=== PATIENT | female | born 1955 | race Caucasian/White ===

== ENCOUNTER 2020-11-24 14:53 | Outpatient (REF) | payer MEDICARE, SELFPAY ==
--- NOTE | 2020-11-24 | MM_ITS ---
EXAMINATION: MM SCREENING DIGITAL BREAST TOMOSYNTHESIS, BILATERAL CLINICAL INFORMATION: Screening. Asymptomatic. Additional history provided of prior breast reduction mammoplasty and surgery for benign fibroadenoma. The lifetime risk of breast cancer based on the Tyrer-Cuzick Model is 7%. COMPARISON: Mammography: 11/10/2019, 11/04/2018, 10/04/2017 TECHNIQUE: Digital breast tomosynthesis is performed in both the craniocaudal and mediolateral oblique views along with computer-aided detection (CAD). Synthesized 2D images are generated from the tomosynthesis. FINDINGS: There are scattered areas of fibroglandular density (ACR BI-RADS breast composition Category b). There are no significant masses, abnormal calcifications, or other abnormalities. Parenchymal pattern is similar to prior exam. There is a stable smooth circumscribed nodule periareolar right breast. There are scattered benign calcifications in both breasts. The axilla and skin contours are unremarkable. MM/MM tomosynthesis screening BI IMPRESSION: No significant changes from prior exams. ASSESSMENT: BI-RADS 2: Benign RECOMMENDATION: Routine annual mammography screening. This patient's information was entered into a reminder system with a target due date for their next mammogram.
== END 2020-11-24 14:54 | disposition home or self-care (01) ==
LOC: HO.MAMMO 14:53
PROVIDERS: Visit Provider Internal Medicine
DX: Z12.31 Encounter for screening mammogram for malignant neoplasm of breast (principal)
CPT/HCPCS: 77063; 77067

== ENCOUNTER → 2020-12-16 09:56 | Outpatient (BNVA) | payer MEDICARE, SELFPAY | PROVIDERS: PCP Internal Medicine; Visit Provider Orthopaedic Surgery | DX: Z47.1 Aftercare following joint replacement surgery (principal); Z96.651 Presence of right artificial knee joint | CPT/HCPCS: 99212 ==

== ENCOUNTER 2020-12-29 09:31 | Outpatient (REF) | payer MEDICARE, SELFPAY ==
--- NOTE | 2020-12-29 10:14 | XR_ITS ---
EXAMINATION: XR KNEE, BILATERAL XR KNEE, RIGHT CLINICAL INFORMATION: Knee pain COMPARISON: 12/07/2019 TECHNIQUE: AP standing view of both knees. Lateral and sunrise views of the right knee. FINDINGS: Right knee: There is a total right knee arthroplasty revision with longstem tibial and femoral components. Hardware is appropriately aligned. Unchanged alignment at the patellofemoral compartment, with slight offset from midline. No periprosthetic lucency or fracture. No joint effusion. Left knee: No fracture or subluxation. Medial and lateral compartments are appropriately aligned. XR/XR knee RT 2V IMPRESSION: Total right knee arthroplasty revision without evidence of failure. Persistent offset from midline at the patellofemoral compartment articulation
--- NOTE | 2020-12-29 10:14 | XR_ITS ---
EXAMINATION: XR KNEE, BILATERAL XR KNEE, RIGHT CLINICAL INFORMATION: Knee pain COMPARISON: 12/07/2019 TECHNIQUE: AP standing view of both knees. Lateral and sunrise views of the right knee. FINDINGS: Right knee: There is a total right knee arthroplasty revision with longstem tibial and femoral components. Hardware is appropriately aligned. Unchanged alignment at the patellofemoral compartment, with slight offset from midline. No periprosthetic lucency or fracture. No joint effusion. Left knee: No fracture or subluxation. Medial and lateral compartments are appropriately aligned. XR/XR knee standing BI IMPRESSION: Total right knee arthroplasty revision without evidence of failure. Persistent offset from midline at the patellofemoral compartment articulation
== END 2020-12-29 09:32 | disposition home or self-care (01) ==
LOC: HO.HOSX 09:31
PROVIDERS: Visit Provider Orthopaedic Surgery
DX: Z47.1 Aftercare following joint replacement surgery (principal); Z96.651 Presence of right artificial knee joint
CPT/HCPCS: 73560; 73565; 99212

== ENCOUNTER 2021-03-03 08:01 | Outpatient (REF) | payer MEDICARE, SELFPAY ==
[2021-03-03 11:50] LABS: Alanine Aminotransferase 18 U/L (0-31); Anion Gap 13 (12-20); Aspartate Amino Transferase 29 U/L (5-31); Blood Urea Nitrogen 18 mg/dL (9-16); Calcium 9.5 mg/dL (8.4-10.2); Carbon Dioxide 28 mmol/L (22-29); Chloride 104 mmol/L (96-108); Cholesterol 221 mg/dL; Estimated Glomerular Filt Rate > 60; Glucose Fasting 128 mg/dL (60-99); HDL Cholesterol 40 mg/dL; LDL Cholesterol Calculated 142 mg/dl; Potassium 4.2 mmol/L (3.3-5.1); Sodium 141 mmol/L (135-145); Triglycerides 195 mg/dL
[2021-03-03 11:59] LABS: Estimated Average Glucose 134 mg/dL; Hemoglobin A1c % 6.3 %
[2021-03-03 12:16] LABS: Vitamin D 25-OH Total 46.2 ng/mL (>30)
== END 2021-03-03 08:02 | disposition home or self-care (01) ==
LOC: HO.HMGCLDS 08:01
PROVIDERS: Visit Provider Internal Medicine
DX: Z00.01 Encounter for general adult medical examination with abnormal findings (principal); E78.5 Hyperlipidemia, unspecified; I10 Essential (primary) hypertension; Z78.0 Asymptomatic menopausal state
CPT/HCPCS: 36415; 80048; 80061; 82306; 83036; 84450; 84460

== ENCOUNTER 2021-05-12 12:59 | Outpatient (REF) | payer MEDICARE, SELFPAY ==
[2021-05-12 14:31] LABS: C Reactive Protein 1.41 mg/dL (< or = 0.50)
[2021-05-12 14:43] LABS: Erythrocyte Sedimentation Rate 13 MM/HR (0-20)
== END 2021-05-12 13:00 | disposition home or self-care (01) ==
LOC: HO.HMGCLDS 12:59
PROVIDERS: PCP Internal Medicine; Visit Provider Student in an Organized Health Care Education/Training Program
DX: M25.561 Pain in right knee (principal)
CPT/HCPCS: 36415; 85652; 86140

== ENCOUNTER 2021-07-07 07:29 | Outpatient (REF) | payer MEDICARE, SELFPAY ==
[2021-07-07 11:50] LABS: Estimated Average Glucose 148 mg/dL; Hemoglobin A1c % 6.8 %
[2021-07-07 12:14] LABS: Alanine Aminotransferase 16 U/L (0-31); Aspartate Amino Transferase 24 U/L (5-31); Cholesterol 156 mg/dL; HDL Cholesterol 33 mg/dL; LDL Cholesterol Calculated 80 mg/dl; Triglycerides 219 mg/dL
[2021-07-07 12:16] LABS: Vitamin D 25-OH Total 49.4 ng/mL (>30)
== END 2021-07-07 07:30 | disposition home or self-care (01) ==
LOC: HO.HMGCLDS 07:29
PROVIDERS: PCP Internal Medicine; Visit Provider Internal Medicine
DX: E78.5 Hyperlipidemia, unspecified (principal); R73.01 Impaired fasting glucose
CPT/HCPCS: 36415; 80061; 82306; 83036; 84450; 84460

== ENCOUNTER 2021-12-04 14:49 | Outpatient (REF) | payer MEDICARE, SELFPAY ==
--- NOTE | ~2021-12-04 | MM_ITS ---
EXAMINATION: MM SCREENING DIGITAL BREAST TOMOSYNTHESIS, BILATERAL CLINICAL INFORMATION: Screening. Asymptomatic. The lifetime risk of breast cancer based on the Tyrer-Cuzick Model is 5%. COMPARISON: Mammography: 11/24/2020, 11/10/2019, 11/04/2018 TECHNIQUE: Digital breast tomosynthesis is performed in both the craniocaudal and mediolateral oblique views along with computer-aided detection (CAD). Synthesized 2D images are generated from the tomosynthesis. FINDINGS: There are scattered areas of fibroglandular density (ACR BI-RADS breast composition Category b). There are no significant masses, abnormal calcifications, or other abnormalities. There is a stable circumscribed nodule right periareolar upper outer breast. Scattered bilateral round and dermal calcifications are again demonstrated. The axilla and skin contours are unremarkable. MM/MM tomosynthesis screening BI IMPRESSION: No mammographic evidence of malignancy. ASSESSMENT: BI-RADS 2: Benign RECOMMENDATION: Routine annual mammography screening. This patient's information was entered into a reminder system with a target due date for their next mammogram.
== END 2021-12-04 14:50 | disposition home or self-care (01) ==
LOC: HO.MAMMO 14:49
PROVIDERS: PCP Internal Medicine; Visit Provider Internal Medicine
DX: Z12.31 Encounter for screening mammogram for malignant neoplasm of breast (principal)
CPT/HCPCS: 77063; 77067

== ENCOUNTER 2021-12-07 09:09 | Outpatient (REF) | payer MEDICARE, SELFPAY ==
[2021-12-07 10:37] LABS: COVID-19 Test Positive (Negative)
== END 2021-12-07 09:10 | disposition home or self-care (01) ==
LOC: HO.LAB 09:09
PROVIDERS: Visit Provider Internal Medicine
DX: Z20.822 Contact with and (suspected) exposure to COVID-19 (principal)
CPT/HCPCS: 87635; C9803

== ENCOUNTER 2022-01-01 07:23 | Outpatient (REF) | payer MEDICARE, SELFPAY ==
[2022-01-01 11:46] LABS: Alanine Aminotransferase 15 U/L (0-31); Anion Gap 10 (12-20); Aspartate Amino Transferase 25 U/L (5-31); Blood Urea Nitrogen 16 mg/dL (9-16); Calcium 9.7 mg/dL (8.4-10.2); Carbon Dioxide 29 mmol/L (22-29); Chloride 105 mmol/L (96-108); Cholesterol 162 mg/dL; Estimated Glomerular Filt Rate > 60; Glucose Fasting 174 mg/dL (60-99); HDL Cholesterol 30 mg/dL; LDL Cholesterol Calculated 90 mg/dl; Potassium 4.4 mmol/L (3.3-5.1); Sodium 140 mmol/L (135-145); Triglycerides 211 mg/dL
[2022-01-01 11:53] LABS: Vitamin D 25-OH Total 53.6 ng/mL (>30)
[2022-01-01 12:05] LABS: Estimated Average Glucose 166 mg/dL; Hemoglobin A1c % 7.4 %
== END 2022-01-01 07:24 | disposition home or self-care (01) ==
LOC: HO.HMGCLDS 07:23
PROVIDERS: Visit Provider Internal Medicine
DX: E11.9 Type 2 diabetes mellitus without complications (principal); E78.5 Hyperlipidemia, unspecified; I10 Essential (primary) hypertension; Z78.0 Asymptomatic menopausal state
CPT/HCPCS: 36415; 80048; 80061; 82306; 83036; 84450; 84460

== ENCOUNTER 2022-02-06 08:40 | Outpatient (REF) | payer MEDICARE, SELFPAY ==
[2022-02-06 11:51] LABS: Appearance Urine CLOUDY; Color Urine YELLOW; Glucose Urine UA NEG (NEG); Leukocyte Esterase Urine 3+ (NEG); Nitrite Urine NEG (NEG); PH 5.5 (5.0-8.0); Specific Gravity - Urine >= 1.030 (1.005-1.025); UACC Culture Trigger YES; Urine Blood 2+ (NEG); Urine Ketones NEG (NEG); Urine Protein 1+ MG/DL (NEG-TRACE)
[2022-02-06 12:22] LABS: WBC Urine TNTC /HPF (0-4)
[2022-02-06 12:23] LABS: Bacteria Urine 2+ /LPF; Squamous Epithelial Cell Urine 2+ /LPF
== END 2022-02-06 08:41 | disposition home or self-care (01) ==
LOC: HO.HMGCLDS 08:40
PROVIDERS: PCP Internal Medicine; Visit Provider Internal Medicine
DX: N39.46 Mixed incontinence (principal)
CPT/HCPCS: 81001; 87086

== ENCOUNTER 2022-03-29 07:17 | Outpatient (REF) | payer MEDICARE, SELFPAY ==
[2022-03-29 11:19] LABS: Appearance Urine HAZY; Color Urine YELLOW; Glucose Urine UA NEG (NEG); Leukocyte Esterase Urine NEG (NEG); Nitrite Urine NEG (NEG); Specific Gravity - Urine 1.025 (1.005-1.025); UACC Culture Trigger NO; Urine Blood 1+ (NEG); Urine Ketones NEG (NEG); Urine Protein NEG (NEG-TRACE)
[2022-03-29 11:32] LABS: Alanine Aminotransferase 12 U/L (0-31); Anion Gap 14 (12-20); Aspartate Amino Transferase 23 U/L (5-31); Blood Urea Nitrogen 20 mg/dL (9-16); Calcium 9.6 mg/dL (8.4-10.2); Carbon Dioxide 25 mmol/L (22-29); Chloride 105 mmol/L (96-108); Cholesterol 161 mg/dL; Estimated Glomerular Filt Rate > 60; Glucose Fasting 128 mg/dL (60-99); HDL Cholesterol 36 mg/dL; LDL Cholesterol Calculated 85 mg/dl; Potassium 4.2 mmol/L (3.3-5.1); Sodium 140 mmol/L (135-145); Triglycerides 203 mg/dL
[2022-03-29 11:47] LABS: Estimated Average Glucose 146 mg/dL; Hemoglobin A1c % 6.7 %
[2022-03-29 11:55] LABS: Vitamin D 25-OH Total 49.5 ng/mL (>30)
[2022-03-29 12:06] LABS: Amorphous Sediment Urine 3+ /LPF; Squamous Epithelial Cell Urine 2+ /LPF
[2022-03-29 12:07] LABS: RBC Urine 0 /HPF (0); WBC Urine 0-2 /HPF (0-4)
== END 2022-03-29 07:18 | disposition home or self-care (01) ==
LOC: HO.HMGCLDS 07:17
PROVIDERS: Visit Provider Internal Medicine
DX: E11.65 Type 2 diabetes mellitus with hyperglycemia (principal); N39.46 Mixed incontinence; E78.5 Hyperlipidemia, unspecified; N95.9 Unspecified menopausal and perimenopausal disorder
CPT/HCPCS: 36415; 80048; 80061; 81001; 82306; 83036; 84450; 84460

== ENCOUNTER 2022-04-02 13:03 | Outpatient (REF) | payer MEDICARE, SELFPAY ==
--- NOTE | ~2022-04-02 | XR_ITS ---
EXAMINATION: XR LUMBOSACRAL SPINE WITH OBLIQUES CLINICAL INFORMATION: Low back pain COMPARISON: None TECHNIQUE: Lumbar spine is imaged in 5 views. FINDINGS: There are hypoplastic 12th ribs with 5 nonrib-bearing lumbar vertebrae of normal height and normal lumbar lordosis. There is mild levocurvature lower thoracic spine. No lumbar vertebral compression or destructive process. There are multilevel degenerative disc changes, greater at L1-L2 through L3-L4. There is borderline retrolisthesis at L3-L4 and L4-L5. Oblique view show no spondylolysis. The SI joints and visualized sacrum are unremarkable. Right hip prosthesis present. XR/XR lumbar spine 4V min IMPRESSION: -Mild levocurvature lower lumbar spine. Normal lumbar lordosis. -No vertebral compression or destructive process. -Multilevel degenerative disc changes. -Borderline retrolisthesis L3-L4 and L4-L5. No spondylolysis.
== END 2022-04-02 13:04 | disposition home or self-care (01) ==
LOC: HO.HMGCX 13:03
PROVIDERS: PCP Internal Medicine; Visit Provider Internal Medicine
DX: M54.50 Low back pain, unspecified (principal)
CPT/HCPCS: 72110

== ENCOUNTER 2022-07-16 07:10 | Outpatient (REF) | payer MEDICARE, SELFPAY ==
[2022-07-16 11:40] LABS: Estimated Average Glucose 128 mg/dL; Hemoglobin A1c % 6.1 %
[2022-07-16 12:10] LABS: Vitamin D 25-OH Total 43.5 ng/mL (>30)
[2022-07-16 12:11] LABS: Alanine Aminotransferase 10 U/L (0-31); Anion Gap 15 (12-20); Aspartate Amino Transferase 19 U/L (5-31); Blood Urea Nitrogen 20 mg/dL (9-16); Calcium 9.6 mg/dL (8.4-10.2); Carbon Dioxide 25 mmol/L (22-29); Chloride 105 mmol/L (96-108); Cholesterol 177 mg/dL; Estimated Glomerular Filt Rate > 60; Glucose Fasting 131 mg/dL (60-99); HDL Cholesterol 40 mg/dL; LDL Cholesterol Calculated 98 mg/dl; Potassium 4.2 mmol/L (3.3-5.1); Sodium 141 mmol/L (135-145); Triglycerides 199 mg/dL
== END 2022-07-16 07:11 | disposition home or self-care (01) ==
LOC: HO.HMGCLDS 07:10
PROVIDERS: PCP Internal Medicine; Visit Provider Internal Medicine
DX: E11.65 Type 2 diabetes mellitus with hyperglycemia (principal); E78.5 Hyperlipidemia, unspecified; Z78.0 Asymptomatic menopausal state
CPT/HCPCS: 36415; 80048; 80061; 82306; 83036; 84450; 84460

== ENCOUNTER 2022-12-06 13:52 | Outpatient (REF) | payer MEDICARE, SELFPAY ==
--- NOTE | ~2022-12-06 | MM_ITS ---
EXAMINATION: MM SCREENING DIGITAL BREAST TOMOSYNTHESIS, BILATERAL CLINICAL INFORMATION: Screening. Asymptomatic. The lifetime risk of breast cancer based on the Tyrer-Cuzick Model is 4.5%. COMPARISON: Mammography: December 04, 2021 and studies dating back to October 04, 2017 TECHNIQUE: Digital breast tomosynthesis is performed in both the craniocaudal and mediolateral oblique views along with computer-aided detection (CAD). Synthesized 2D images are generated from the tomosynthesis. FINDINGS: The breasts are almost entirely fatty (ACR BI-RADS breast composition Category a). There are no significant masses, abnormal calcifications, or other abnormalities. MM/MM tomosynthesis screening BI IMPRESSION: No significant changes from prior exam. ASSESSMENT: BI-RADS 1: Negative RECOMMENDATION: Routine annual mammography screening. This patient's information was entered into a reminder system with a target due date for their next mammogram.
== END 2022-12-06 13:53 | disposition home or self-care (01) ==
LOC: HO.MAMMO 13:52
PROVIDERS: PCP Internal Medicine; Visit Provider Internal Medicine
DX: Z12.31 Encounter for screening mammogram for malignant neoplasm of breast (principal)
CPT/HCPCS: 77063; 77067

== ENCOUNTER → 2022-12-24 13:06 | Outpatient (BNVA) | payer MEDICARE, SELFPAY | PROVIDERS: PCP Internal Medicine; Visit Provider Internal Medicine | DX: M53.3 Sacrococcygeal disorders, not elsewhere classified (principal); G58.8 Other specified mononeuropathies | CPT/HCPCS: 20553; 64450; 99202 ==

== ENCOUNTER 2023-01-04 07:20 | Outpatient (REF) | payer MEDICARE, SELFPAY ==
[2023-01-04 12:12] LABS: Alanine Aminotransferase 8 U/L (0-31); Anion Gap 13 (12-20); Aspartate Amino Transferase 17 U/L (5-31); Blood Urea Nitrogen 22 mg/dL (9-16); Calcium 9.9 mg/dL (8.4-10.2); Carbon Dioxide 26 mmol/L (22-29); Chloride 107 mmol/L (96-108); Cholesterol 172 mg/dL; Estimated Glomerular Filt Rate > 60; Glucose Fasting 119 mg/dL (60-99); HDL Cholesterol 40 mg/dL; LDL Cholesterol Calculated 93 mg/dl; Potassium 4.7 mmol/L (3.3-5.1); Sodium 141 mmol/L (135-145); Triglycerides 199 mg/dL
[2023-01-04 12:21] LABS: Estimated Average Glucose 126 mg/dL
[2023-01-04 12:25] LABS: Creatinine Urine 77.08 mg/dL; Microalbum/Creatinine Ratio Ur 10.3 ug/mg cr
[2023-01-04 12:30] LABS: Vitamin D 25-OH Total 52.5 ng/mL (>30)
== END 2023-01-04 07:21 | disposition home or self-care (01) ==
LOC: HO.HMGCLDS 07:20
PROVIDERS: PCP Internal Medicine; Visit Provider Internal Medicine
DX: E11.9 Type 2 diabetes mellitus without complications (principal); E78.5 Hyperlipidemia, unspecified; Z78.0 Asymptomatic menopausal state
CPT/HCPCS: 36415; 80048; 80061; 82043; 82306; 83036; 84450; 84460

== ENCOUNTER → 2023-01-07 11:30 | Outpatient (BNVA) | payer MEDICARE, SELFPAY | PROVIDERS: PCP Internal Medicine; Visit Provider Internal Medicine | DX: M53.3 Sacrococcygeal disorders, not elsewhere classified (principal); G89.29 Other chronic pain | CPT/HCPCS: 27096 ==

== ENCOUNTER 2023-05-06 07:02 | Outpatient (REF) | payer MEDICARE, SELFPAY ==
[2023-05-06 11:47] LABS: Estimated Average Glucose 120 mg/dL; Hemoglobin A1c % 5.8 %
[2023-05-06 11:51] LABS: Alanine Aminotransferase 7 U/L (0-31); Anion Gap 13 (12-20); Aspartate Amino Transferase 16 U/L (5-31); Blood Urea Nitrogen 19 mg/dL (9-16); Calcium 9.8 mg/dL (8.4-10.2); Carbon Dioxide 28 mmol/L (22-29); Chloride 107 mmol/L (96-108); Cholesterol 160 mg/dL; Estimated Glomerular Filt Rate > 60; Glucose Fasting 122 mg/dL (60-99); HDL Cholesterol 39 mg/dL; LDL Cholesterol Calculated 87 mg/dl; Potassium 4.5 mmol/L (3.3-5.1); Sodium 143 mmol/L (135-145); Triglycerides 174 mg/dL
[2023-05-06 12:12] LABS: Vitamin D 25-OH Total 71.1 ng/mL (>30)
== END 2023-05-06 07:03 | disposition home or self-care (01) ==
LOC: HO.HMGCLDS 07:02
PROVIDERS: PCP Internal Medicine; Visit Provider Internal Medicine
DX: E78.5 Hyperlipidemia, unspecified (principal); N95.9 Unspecified menopausal and perimenopausal disorder; E11.9 Type 2 diabetes mellitus without complications
CPT/HCPCS: 36415; 80048; 80061; 82306; 83036; 84450; 84460

== ENCOUNTER 2023-05-10 14:58 | Outpatient (REF) | payer MEDICARE, SELFPAY ==
[2023-05-10 17:21] LABS: Appearance Urine Turbid; Color Urine Yellow; Glucose Urine UA Negative (Negative); Leukocyte Esterase Urine Large (3+) (Negative); Nitrite Urine Negative (Negative); PH 5.5 (5.0-9.0); Specific Gravity - Urine 1.025 (1.005-1.025); UMIC TRIGGER UACC YES; Urine Blood Large (3+) (Negative); Urine Ketones Trace mg/dL (Negative); Urine Protein 100 (2+) mg/dL (Neg-Trace)
[2023-05-10 17:34] LABS: Bacteria Urine 1+ (None Seen); Calcium Oxalate Crystals Urine Present; Hyaline Casts Urine 0-2 /LPF (0-2); RBC Urine >20 /HPF (0-2); UACC Culture Trigger YES; WBC Urine >50 /HPF (0-5)
== END 2023-05-10 14:59 | disposition home or self-care (01) ==
LOC: HO.HMGCLDS 14:58
PROVIDERS: PCP Internal Medicine; Visit Provider Internal Medicine
DX: R30.0 Dysuria (principal)
CPT/HCPCS: 81001; 87086; 87088; 87186

== ENCOUNTER → 2023-05-13 13:14 | Outpatient (BNVA) | payer MEDICARE, SELFPAY | PROVIDERS: PCP Internal Medicine; Visit Provider Orthopaedic Surgery | DX: Z96.651 Presence of right artificial knee joint (principal) | CPT/HCPCS: 99212 ==

== ENCOUNTER 2023-11-04 07:36 | Outpatient (REF) | payer MEDICARE, SELFPAY ==
[2023-11-04 11:56] LABS: Estimated Average Glucose 126 mg/dL
[2023-11-04 12:13] LABS: Alanine Aminotransferase 7 U/L (0-31); Anion Gap 15 (12-20); Aspartate Amino Transferase 18 U/L (5-31); Blood Urea Nitrogen 18 mg/dL (9-16); Calcium 9.7 mg/dL (8.4-10.2); Carbon Dioxide 24 mmol/L (22-29); Chloride 107 mmol/L (96-108); Cholesterol 188 mg/dL (<200); Estimated Glomerular Filt Rate > 60; Glucose Fasting 125 mg/dL (60-99); HDL Cholesterol 40 mg/dL (>40); LDL Cholesterol Calculated 104 mg/dL (<100); Potassium 3.9 mmol/L (3.3-5.1); Sodium 142 mmol/L (135-145); Triglycerides 221 mg/dL (<150)
[2023-11-04 12:29] LABS: Vitamin D 25-OH Total 69.2 ng/mL (>30)
[2023-11-04 12:30] LABS: Creatinine Urine 146.97 mg/dL; Microalbum/Creatinine Ratio Ur 12.2 ug/mg cr (<30)
== END 2023-11-04 07:37 | disposition home or self-care (01) ==
LOC: HO.HMGCLDS 07:36
PROVIDERS: PCP Internal Medicine; Visit Provider Internal Medicine
DX: E11.9 Type 2 diabetes mellitus without complications (principal); M54.50 Low back pain, unspecified; E78.5 Hyperlipidemia, unspecified; Z78.0 Asymptomatic menopausal state
CPT/HCPCS: 36415; 80048; 80061; 82043; 82306; 82570; 83036; 84450; 84460

== ENCOUNTER 2023-11-08 12:53 | Outpatient (AMB) | payer MEDICARE, SELFPAY ==
[2023-11-08 13:02] VITALS: BP 126/74; PULSE 72; O2SAT 97; BMI 28.7
--- NOTE | 2023-11-08 13:02 | MHC.PC.OV ---
Vital Signs 11/08/23 13:02 Height 5 ft 3 in Weight 162 lb BMI 28.7 BP 126/74 Blood Pressure Location Rt brachial Position Sitting Pulse 72 Pulse Source Pulse Oximeter Pulse Oximetry (%) 97 Oxygen Delivery Method Room Air Intake Visit Reasons: 4 month follow up DM Intake Note: pt is here for 4 month f/u DM. denied flu shot today Principal Examiner Required: No Accompanied by: Self / Same As Patient Allergies codeine [CODEINE] Allergy (Severe, Verified 11/08/23 13:19) THROAT SWELLING omeprazole [From PRILOSEC] Allergy (Severe, Verified 11/08/23 13:19) SEVERE ABDOMINAL PAIN, stomach upset sulfamethoxazole [From BACTRIM] Allergy (Unknown, Verified 11/08/23 13:19) RASH vancomycin [VANCOMYCIN] Allergy (Unknown, Verified 11/08/23 13:19) RED RASH zoster vaccine live [SHINGLES VACCINE] Allergy (Unknown, Verified 11/08/23 13:19) RASH,HIVES Medication List - Last Reconciled 11/08/23 by Alana Tripp MD acetaminophen (Tylenol) 650 mg PO BID PRN atorvastatin 10 mg PO Q2D blood sugar diagnostic ([email or web address] Ultra Test strips) CHECK FASTING BLOOD SUGAR ONCE DAILY BEFORE A MEAL blood-glucose meter ([employer] Ultra2 Meter kit) As directed cholecalciferol (vitamin D3) 2,000 units PO DAILY famotidine 20 mg PO DAILY lancets ([employer] Delica Lancets) test blood sugars once a day metformin ER 500 mg PO QPM iiltkbrhifxg-cymkngrn-nqzyfl 1 tab PO DAILY Tobacco use date assessed: 11/08/23 Fall risk assessment: No Falls in past year Last assessed Fall Risk: 11/08/23 Dental Screening Dental Screen Date: 11/08/23 Did you have a dental visit in the last 12 months?: Yes Did you have a dental problem in the last 6 months where you did not have access to dental care?: No Was dental information given to patient?: Patient has dentist HPI 4 month follow up DM HPI Details Six 8-year-old lady with diabetes mellitus, dyslipidemia, here today for a follow-up. She has been compliant with taking her medications, and has been following recommended diet, tries to exercise regularly. She has been feeling well with no new complaints at present time. 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 She is up-to-date with her pneumonia vaccine shingles vaccine and Tdap but does not want to get a flu shot or the COVID vaccine [facility] Medical History Heartburn symptom Low back pain Mixed stress and urge urinary incontinence Chronic right sacroiliac joint pain Menopause Osteoarthritis involving multiple joints on both sides of body Dyslipidemia Surgical History H/O breast biopsy H/O abdominoplasty Status post bilateral breast reduction History of partial hysterectomy History of tonsillectomy Hx of appendectomy Status post total hip replacement, right History of total right knee replacement (~2019) Family History Father No problems noted. Mother No problems noted. Social History Housing: House Alcohol intake: never Patient Tobacco Use Status: Never used Tobacco e-Cigarette/Vaping Use: Never Used service: No Current occupational status: retired Current occupation: right handed Cognitive needs: No Hearing needs: No Vision needs: Yes Questionnaire Thrive Questionnaire Date Thrive assessed: 01/08/23 EVELIA-7 AMB Questionnaire EVELIA-7 Date EVELIA - 7 assessed: 01/08/23 Source: Developed by Drs. Kayode Jung, Lisette Saldivar, Yakov Nicole and colleagues, with an educational yuli from [employer]. Review of Systems Const Denies body aches, Denies fatigue, Denies fever(s), Denies headache(s) and Denies weakness Eyes Denies change in vision ENT Denies dizziness, Denies headache(s), Denies nasal congestion, Denies nasal discharge and Denies sore throat Card Denies chest pain, Denies lightheadedness, Denies palpitations and Denies dyspnea Resp Denies chest congestion, Denies cough, Denies dyspnea and Denies wheezing GI Denies abdominal pain, Denies change in bowel habits and Denies heartburn Denies urinary frequency, Denies dysuria and Denies urinary urgency Musc Reports abnormal gait, Reports arthralgias, Denies joint swelling and Reports stiffness Skin/Breast Denies lesions and Denies rash Neuro Reports abnormal gait, Denies dizziness, Denies headache(s) and Denies weakness Psych Reports as per HPI Endo Denies fatigue, Denies polydipsia, Denies polyuria and Denies palpitations Suhas/Lymph Denies easy bruising Aller/Immun Denies seasonal rhinorrhea and Denies wheezing Physical exam (Primary Care) Vital Signs: Last Vital Signs Pulse 72 11/08/23 13:02 BP 126/74 11/08/23 13:02 Pulse Ox 97 11/08/23 13:02 Oxygen Delivery Method Room Air 11/08/23 13:02 BMI result Body Mass Index 28.7 Tobacco/Smoking Status: Tobacco use Status Tobacco use date assessed 11/08/23 11/08/23 13:04 Patient Tobacco Use Status Never used Tobacco 11/08/23 13:04 e-Cigarette/Vaping Use Never Used 11/08/23 13:04 Thrive Assessment: Date of Thrive Assessment Date Thrive assessed 01/08/23 11/08/23 13:04 Const General: comfortable, no acute distress and alert Nutritional Appearance: obese Orientation/consciousness: patient oriented x3 HENMT Head: Yes normocephalic Ears: hearing grossly normal bilaterally, external ears normal, TM's normal bilaterally and EAC's normal General nose exam: Normal external nose present Face and sinus: Yes face symmetric Mouth: oropharynx normal and moist mucous membranes Eyes General: appearance normal, both eyes and all related structures Neck Neck: Yes full ROM, Yes no lymphadenopathy and Yes supple Thyroid: Thyroid normal Resp Effort & Inspection: normal respiratory effort and able to speak in complete sentences Auscultation: clear to auscultation bilaterally Cardio Rate: regular rate Rhythm: regular rhythm Heart sounds: S1 normal heart sound present and S2 normal heart sound present GI Palpation (GI): Soft to palpation, nontender, no guarding and no masses Auscultation: normal bowel sounds Back/Spine/Pelvis Thoracic/Lumbar Spine: straight leg raise negative bilaterally, No paraspinal muscle tenderness, No thoraco-lumbar ROM limited and No lumbar spinal tenderness Skin General skin exam: no rashes or lesions noted Neuro General: patient oriented x3, moves all extremities, no focal motor deficits and CN's II-XI intact bilaterally Cognition (Neuro): normal cognition Extrem General: Yes full ROM, Yes no joint enlargement and Yes no pedal edema Results Reviewed Results Reviewed: Laboratory Tests 11/04/23 07:41 Estimat Average Glucose 126 Hemoglobin A1c % 6.0 Urine Creatinine 146.97 Urine Microalbumin 18.0 Microalb/Creat Ratio 12.2 jerald: Deepti Harry Age/Sex: 68/F : 1955 Unit#: [id number] Attend Dr: Alana Tripp MD Re11/04/23 Status: DEP [facility] Disch: SPEC : [id number] RONAN: 11/04/23 STATUS: COMP REQ : [id number] RECD: 11/04/23-[address]: Alana Tripp MD COMP: 11/04/23 ENTERED: 11/04/[address]: ORDERED: Met Prof Fast, AST, ALT, Lipid Panel, Vitamin D 25-OH Test Result Flag Reference Site Sodium 142 135-145 mmol/L Potassium 3.9 3.3-5.1 mmol/L CL 107 96-108 mmol/L CO2 24 22-29 mmol/L Gap 15 12-20 BUN 18 H 9-16 mg/dL Creat 0.80 0.5-1.4 mg/dL EGFR > 60 NOTE: For -Italian individuals, multiply the result by 1.210. Chronic Kidney Disease: Estimated GFR < 60 mL/min/1.73m2 Severe Kidney Disease: Estimated GFR < 15 mL/min/1.73m2 FBS 125 H 60-99 mg/dL A fasting glucose from 100-125 mg/dl is considered impaired (pre-diabetes). CA 9.7 8.4-10.2 mg/dL AST (GOT) 18 5-31 U/L ALT (GPT) 7 0-31 U/L Triglyceride 221 H <150 mg/dL Desirable Triglyceride: less than 150 mg/dL Borderline High Triglyceride 150-199 mg/dL High Triglyceride: 200-499 mg/dL Very High Triglyceride: greater than or equal to 5OO mg/dL Cholesterol 188 <200 mg/dL Desirable Cholesterol: less than 200 mg/dL Borderline High Cholesterol: 200-239 mg/dL High Cholesterol: greater than 239 mg/dL LDL Calculated 104 H <100 mg/dL Desirable LDL: less than 100 mg/dL Near Optimal/Above Optimal LDL: 110-129 mg/dL Borderline High LDL: 130-159 mg/dL High LDL: 160-189 mg/dL Very High LDL: greater than or equal to 190 mg/dL HDL 40 L >40 mg/dL Desirable HDL: greater than 40 mg/dL Note: This HDL assay may give artificially low results in patients with liver disease. Vit D 25-OH Tot 69.2 >30 ng/mL Health Based Reference Values* < 20 ng/mL Deficient 20-30 ng/mL Insufficient > 30 ng/mL Sufficient Assessment and Plan Assessment & Plan (1) Type 2 diabetes mellitus without complication, without long-term current use of insulin: Code(s): E11.9 - Type 2 diabetes mellitus without complications Plan: Recent hemoglobin A1c is at 6%. Will continue on metformin ER 500 mg at night with supper. Reinforced diabetic diet and regular exercise with patient. Counseled regarding importance of yearly diabetes retinopathy screening. Patient advised to inspect feet daily, for any signs of injury, callus or infection. Compliance with diet and regular exercise again stressed. Blood pressure goal is less than 130/80, goal LDL is less than 100 and goal hemoglobin A1c is less than 7% . recommended flu vaccine and getting COVID booster but patient declined (2) Dyslipidemia: Code(s): E78.5 - Hyperlipidemia, unspecified Plan: Reviewed recent fasting lipid profile with LDL cholesterol at 104 and elevated triglycerides. . Continue with atorvastatin 10 mg daily , but to take it now every day, and recommended starting taking [place] 3 fatty acid supplements at least 2 capsules daily , in addition to adherence to low-cholesterol diet and regular exercise, at least 30 minutes 3 to 4 times a week. Advised patient to make healthy food choices, eat more fruits, vegetables, whole grains, wild caught fish and low-fat dairy. Limit amount of meat and fried or fatty food products, as well as processed foods and fast foods. Repeat l fasting lipid panel in 3 months prior to next visit Medications: Changed From atorvastatin every other day 10 mg PO Q2D 50 tabs 1RF To atorvastatin 10 mg PO DAILY 90 tabs 2RF Refilled meloxicam 7.5 mg PO DAILY PRN 90 tabs 1RF low back pain Coding Level of Care Code Est Pt Level 3 (24238) Diagnoses Type 2 diabetes mellitus without complication, without long-term current use of insulin E11.9 Dyslipidemia E78.5
== END 2023-11-08 15:33 | disposition home or self-care (01) ==
PROVIDERS: PCP Internal Medicine; Visit Provider Internal Medicine
DX: E11.9 Type 2 diabetes mellitus without complications (principal); E78.5 Hyperlipidemia, unspecified
CPT/HCPCS: 99213

== ENCOUNTER 2023-12-12 13:21 | Outpatient (REF) | payer MEDICARE, SELFPAY ==
--- NOTE | ~2023-12-12 | MM_ITS ---
EXAMINATION: BONE DENSITOMETRY CLINICAL INDICATION: Asymptomatic menopausal state. COMPARISON: Baseline BD dated 10/04/2017. TECHNIQUE: Using a [employer] DXA System (software version: 13.1) manufactured by [employer], dual-energy x-ray absorptiometry was performed of the lumbar spine and left hip. The images are of good technical quality. Summary results are attached. FINDINGS: LEFT FEMUR, NECK: Current: BMD 0.788 g/cm2, Z-score -0.4, T-score -1.8, osteopenia. Baseline: BMD 1.031 g/cm2. LEFT FEMUR, TOTAL: Current: BMD 0.862 g/cm2, Z-score -0.1, T-score -1.2, osteopenia, 23.3% decrease from baseline (<5% change is not significant). Baseline: BMD 1.124 g/cm2. AP SPINE L1-L4 (excluding L3): The data of L1-L4 has been changed to exclude the L3 vertebral body, because degenerative sclerosis at this level may cause overestimation of lumbar spine density. Current: BMD 1.114 g/cm2, Z-score 0.9, T-score -0.5, normal, 0.7% decrease from baseline (<5% change is not significant). Baseline: BMD 1.122 g/cm2. IDENTIFIED RISK FACTORS: Hysterectomy, menopause. HISTORY OF FRACTURE: None listed. MEDICATIONS: Multivitamin, vitamin D. MM/XR DEXA axial skeleton IMPRESSION: 1. DIAGNOSIS: Osteopenia based on the lowest T-score value of -1.8 in the femoral neck applying World Health Organization criteria. 2. 10-YEAR FRACTURE RISK PREDICTION, FRAX: Major osteoporotic fracture (clinical spine, forearm, hip or shoulder) 10.2%. Hip fracture 1.5%. 3. Treatment Recommendations: NOF guidelines recommend consideration for treatment in postmenopausal women and men age 50 and older presenting with the following: -A hip or vertebral (clinical or morphometric) fracture. -T-score less than or equal to -2.5 at the femoral neck or spine after appropriate evaluation to exclude secondary causes. -Low bone mass at the hip or spine and a 10-year fracture probability by FRAX of greater than or equal to 3% for hip fracture or greater than or equal to 20% for major osteoporotic fracture based on the [place] adapted WHO algorithm. 4. Other Recommendations: All treatment decisions require clinical judgment and consideration of individual patient factors, including patient preferences, comorbidities, previous drug use, risk factors not captured in the FRAX model (e.g. frailty, falls, vitamin D deficiency, increased bone turnover, interval significant decline in bone density) and possible under or overestimation of fracture risk by FRAX. Additional medical evaluation for secondary cause of low bone mineral density may be appropriate. FUTURE SCAN RECOMMENDATION: People with diagnosed cases of osteoporosis or at high risk for fracture should have regular bone mineral density tests. For patients eligible for Medicare, routine testing is allowed once every 2 years. The testing frequency can be increased to one year for patients who have rapidly progressing disease, those who are receiving or discontinuing medical therapy to restore bone mass, or have additional risk factors.
== END 2023-12-12 13:22 | disposition home or self-care (01) ==
LOC: HO.MAMMO 13:21
PROVIDERS: PCP Internal Medicine; Visit Provider Internal Medicine
DX: Z12.31 Encounter for screening mammogram for malignant neoplasm of breast (principal); Z13.820 Encounter for screening for osteoporosis; Z78.0 Asymptomatic menopausal state
CPT/HCPCS: 77063; 77067; 77080

== ENCOUNTER → 2023-12-12 14:00 | Outpatient (BNV) | payer MEDICARE, SELFPAY | PROVIDERS: PCP Internal Medicine; Visit Provider Radiology Diagnostic Radiology | DX: Z12.31 Encounter for screening mammogram for malignant neoplasm of breast (principal) | CPT/HCPCS: 77063; 77067 ==

== ENCOUNTER 2024-01-16 10:45 | Outpatient (AMB) | payer MEDICARE, SELFPAY ==
--- NOTE | 2024-01-16 11:13 | A.OFFPC_ITS ---
Vital Signs 01/16/24 11:20 Height 5 ft 3 in Weight 163 lb BMI 28.9 BP 122/80 Blood Pressure Location Rt brachial Position Sitting Pulse 71 Pulse Source Pulse Oximeter Pulse Oximetry (%) 97 Oxygen Delivery Method Room Air Intake Visit Reasons: Annual PE Intake Note: Pt is here today for her PE: Last mammogram 12/12/23, bone density scan 12/12/23, cologuard 01/17/22 Allergies codeine [CODEINE] Allergy (Severe, Verified 01/16/24 11:43) THROAT SWELLING omeprazole [From PRILOSEC] Allergy (Severe, Verified 01/16/24 11:43) SEVERE ABDOMINAL PAIN, stomach upset sulfamethoxazole [From BACTRIM] Allergy (Unknown, Verified 01/16/24 11:43) RASH vancomycin [VANCOMYCIN] Allergy (Unknown, Verified 01/16/24 11:43) RED RASH zoster vaccine live [SHINGLES VACCINE] Allergy (Unknown, Verified 01/16/24 11:43) RASH,HIVES Medication List - Last Reconciled 01/16/24 by Alana Tripp MD acetaminophen (Tylenol) 650 mg PO BID PRN atorvastatin 10 mg PO DAILY blood sugar diagnostic ([employer] Ultra Test strips) CHECK FASTING BLOOD SUGAR ONCE DAILY BEFORE A MEAL blood-glucose meter (Instant API Ultra2 Meter kit) As directed cholecalciferol (vitamin D3) 2,000 units PO DAILY famotidine 20 mg PO DAILY lancets (At [employer] Delica Lancets) test blood sugars once a day meloxicam 7.5 mg PO DAILY PRN metformin ER 500 mg PO QPM [id number]-difxrhmq-[id number] 1 tab PO DAILY Tobacco use date assessed: 01/16/24 Fall risk assessment: No Falls in past year Last assessed Fall Risk: 01/16/24 Dental Screening Dental Screen Date: 01/16/24 Did you have a dental visit in the last 12 months?: Yes Did you have a dental problem in the last 6 months where you did not have access to dental care?: No Was dental information given to patient?: Patient has dentist HPI Annual PE HPI Details 68-year-old lady here today for physical exam. She is up-to-date with her screening mammogram last done on 12/12/23 with negative findings, had her bone density done at same time which showed osteopenia in both left femoral neck left femur and normal in lumbar spine. She had a colon cancer screening done with [facility] 01/17/22 with negative results. She has diabetes mellitus, currently on metformin, with good control of her diabetes, most recent hemoglobin A1c at 6%. Takes atorvastatin 10 mg once a day for her hyperlipidemia, with recent fasting lipid results showing LDL cholesterol almost within goal of less than 100 mg/dL. Has osteoarthritis, with history of arthroplasty of right knee and right hip. Has chronic right sacroiliac pain, already seen by pain management and had cortisone injections which has not helped at all. Takes meloxicam almost on a daily basis for pain relief. She is up-to-date with all her vaccinations but does not want to get a flu vaccine. [facility] Medical History Heartburn symptom Mixed stress and urge urinary incontinence Chronic right sacroiliac joint pain Osteoarthritis involving multiple joints on both sides of body Dyslipidemia Surgical History H/O breast biopsy H/O abdominoplasty Status post bilateral breast reduction History of partial hysterectomy History of tonsillectomy Hx of appendectomy Status post total hip replacement, right History of total right knee replacement (~2019) Family History Father No problems noted. Mother No problems noted. Social History Housing: House Alcohol intake: never Patient Tobacco Use Status: Never used Tobacco e-Cigarette/Vaping Use: Never Used service: No Current occupational status: retired Current occupation: right handed Cognitive needs: No Hearing needs: No Vision needs: Yes Questionnaire PHQ-9 Over the last 2 weeks, how often have you been bothered by any of the following problems? 1. Little interest or pleasure in doing things: not at all 2. Feeling down, depressed, or hopeless: not at all 3. Trouble falling or staying asleep, or sleeping too much: several days 4. Feeling tired or having little energy: several days 5. Poor appetite or overeating: not at all 6. Feeling bad about yourself - or that you are a failure or have let yourself or your family down: not at all 7. Trouble concentrating on things, such as reading the newspaper or watching television: not at all 8. Moving or speaking so slowly that other people could have noticed. Or the opposite - being so fidgety or restless that you have been moving around a lot more than usual: not at all 9. Thoughts that you would be better off or of hurting yourself in some way: not at all Total score: 2 Depression Screening Interpretation: Negative Depression Screening Done: Yes 94204 - PHQ-9 Billing: Yes Source: Developed by Drs. Kayode Jung, Lisette Saldivar, Yakov Nicole and colleagues, with an educational yuli from [employer]. Thrive Questionnaire Date Thrive assessed: 01/16/24 What is your living situation today?: I have a steady place to live Within the past 12 months, did the food you bought not last and you didn't have the money to get more?: Never true Within the past 12 months, did you worry whether your food would run out before you got money to buy more?: Never true Do you have trouble paying for medicines?: No Do you have trouble getting transportation to medical appointments?: No Do you have trouble paying your heating and electricity bill?: No Do you have trouble taking care of your child, family member or friend?: No Do you have trouble with day-to-day activities such as bathing, preparing meals, shopping, managing finances, etc.?: No Are you currently unemployed and looking for a job?: No Are you interested in more education?: No THRIVE Score: 0 AUDIT C Alcohol Use Questionnaire (AUDIT-C) 1. How often do you have a drink containing alcohol?: Never 3. How often do you have six or more drinks on one occasion?: Never Total Score: 0 EVELIA-7 AMB Questionnaire EVELIA-7 Date EVELIA - 7 assessed: 01/16/24 Feeling nervous, anxious, or on edge: 1 = Several days Not being able to stop or control worryin = Several days Worrying too much about different things: 1 = Several days Trouble relaxin = Not at all Being so restless that it is hard to sit still: 0 = Not at all Becoming easily annoyed or irritable: 0 = Not at all Feeling afraid as if something awful might happen: 0 = Not at all Total EVELIA-7 score (0-4 normal; 5-9 mild; 10-14 moderate; 15-21 severe): 3 Source: Developed by Drs. Kayode Jung, Lisette Saldivar, Yakov Nicole and colleagues, with an educational yuli from [employer]. EVELIA-7 Assessment Billing EVELIA-7 Assessment Tool: EVELIA-7 Assessment 60862 Review of Systems Const Denies body aches, Denies fatigue, Denies fever(s), Denies headache(s) and Denies weakness Eyes Details: Goes [facility] [employer] in [place], currently up-to-date with her diabetic retinopathy screening Denies change in vision ENT Denies dizziness, Denies headache(s), Denies nasal congestion, Denies nasal discharge and Denies sore throat Card Denies chest pain, Denies lightheadedness, Denies palpitations and Denies dyspnea Resp Denies chest congestion, Denies cough, Denies dyspnea and Denies wheezing GI Denies abdominal pain, Denies change in bowel habits and Denies heartburn Denies urinary frequency, Denies dysuria and Denies urinary urgency Musc Reports abnormal gait, Reports arthralgias, Denies joint swelling and Reports stiffness Skin/Breast Denies lesions and Denies rash Neuro Reports abnormal gait, Denies dizziness, Denies headache(s) and Denies weakness Psych Reports no additional complaints Endo Denies fatigue, Denies polydipsia, Denies polyuria and Denies palpitations Suhas/Lymph Denies easy bruising Aller/Immun Denies seasonal rhinorrhea and Denies wheezing Physical exam (Primary Care) Vital Signs: Last Vital Signs Pulse 71 01/16/24 11:20 BP 122/80 01/16/24 11:20 Pulse Ox 97 01/16/24 11:20 Oxygen Delivery Method Room Air 01/16/24 11:20 BMI result Body Mass Index 28.9 Tobacco/Smoking Status: Tobacco use Status Tobacco use date assessed 01/16/24 01/16/24 11:16 Patient Tobacco Use Status Never used Tobacco 01/16/24 11:16 e-Cigarette/Vaping Use Never Used 01/16/24 11:16 PHQ-9: PHQ-9 Score PHQ-9: Total score 3 01/16/24 14:14 Depression Screening Interpretation: Negative Thrive Assessment: Date of Thrive Assessment Date Thrive assessed 01/16/24 01/16/24 11:32 Const General: comfortable, no acute distress and alert Orientation/consciousness: patient oriented x3 HENMT Head: Yes normocephalic Ears: hearing grossly normal bilaterally, external ears normal, TM's normal bilaterally and EAC's normal General nose exam: Normal external nose present Face and sinus: Yes face symmetric Mouth: oropharynx normal and moist mucous membranes Eyes General: appearance normal, both eyes and all related structures Neck Neck: Yes full ROM, Yes no lymphadenopathy and Yes supple Thyroid: Thyroid normal Chest Breast/axilla palpation: normal palpation of the breasts Resp Effort & Inspection: normal respiratory effort and able to speak in complete sentences Auscultation: clear to auscultation bilaterally Cardio Rate: regular rate Rhythm: regular rhythm Heart sounds: S1 normal heart sound present and S2 normal heart sound present GI Palpation (GI): Soft to palpation, nontender, no guarding and no masses Auscultation: normal bowel sounds General: Yes deferred Back/Spine/Pelvis Other: Slight tenderness on palpation over right sacroiliac area Thoracic/Lumbar Spine: straight leg raise negative bilaterally, No thoraco- lumbar ROM limited and No lumbar spinal tenderness Skin General skin exam: no rashes or lesions noted Neuro General: patient oriented x3, moves all extremities, Normal light touch and pain sensation, no focal motor deficits, CN's II-XI intact bilaterally and normal sensation to monofilament Cognition (Neuro): normal cognition Gait exam (Neuro): Other gait observations present (Limping) Extrem General: Yes full ROM, Yes no joint enlargement and Yes no pedal edema Psych Appearance: grossly normal and well kempt Mental Status: mental status grossly normal Speech and movement: Normal speech and movement present Affect: normal affect Attitude: cooperative Thought process: Normal thought process present Thought content: Normal thought content present Results Reviewed Results Reviewed: ENTERED: 11/04/23 OTHR MOSCOSO: ORDERED: Met Prof Fast, AST, ALT, Lipid Panel, Vitamin D 25-OH Test Result Flag Reference Sodium 142 135-145 mmol/L Potassium 3.9 3.3-5.1 mmol/L CL 107 96-108 mmol/L CO2 24 22-29 mmol/L Gap 15 12-20 BUN 18 H 9-16 mg/dL Creat 0.80 0.5-1.4 mg/dL EGFR > 60 NOTE: For -[place] individuals, multiply the result by 1.210. Chronic Kidney Disease: Estimated GFR < 60 mL/min/1.73m2 Severe Kidney Disease: Estimated GFR < 15 mL/min/1.73m2 FBS 125 H 60-99 mg/dL A fasting glucose from 100-125 mg/dl is considered impaired (pre-diabetes). CA 9.7 8.4-10.2 mg/dL AST (GOT) 18 5-31 U/L ALT (GPT) 7 0-31 U/L Triglyceride 221 H <150 mg/dL Desirable Triglyceride: less than 150 mg/dL Borderline High Triglyceride 150-199 mg/dL High Triglyceride: 200-499 mg/dL Very High Triglyceride: greater than or equal to 5OO mg/dL Cholesterol 188 <200 mg/dL Desirable Cholesterol: less than 200 mg/dL Borderline High Cholesterol: 200-239 mg/dL High Cholesterol: greater than 239 mg/dL LDL Calculated 104 H <100 mg/dL Desirable LDL: less than 100 mg/dL Near Optimal/Above Optimal LDL: 110-129 mg/dL Borderline High LDL: 130-159 mg/dL High LDL: 160-189 mg/dL Very High LDL: greater than or equal to 190 mg/dL HDL 40 L >40 mg/dL Desirable HDL: greater than 40 mg/dL Note: This HDL assay may give artificially low results in patients with liver disease. Vit D 25-OH Tot 69.2 >30 ng/mL Health Based Reference Values* < 20 ng/mL Deficient 20-30 ng/mL Insufficient > 30 ng/mL Sufficient Laboratory Tests 11/04/23 07:41 Estimat Average Glucose 126 Hemoglobin A1c % 6.0 Assessment and Plan Assessment & Plan (1) Annual visit for general adult medical examination with abnormal findings: Code(s): Z00.01 - Encounter for general adult medical examination with abnormal findings Plan: Recent fasting lab results reviewed with patient. Continue with dental visit every 6 months and yearly eye exams. Take adequate calcium in diet and vitamin- D 3 at 2000 IU per cap once a day, in addition to weight-bearing exercises to help maintain good muscle tone and weight control. Instructed to do self-breast exam, and continue with yearly mammogram. She is up-to-date with her bone density scan done earlier this year which showed presence of osteopenia in left femoral neck and left femur, repeat again in 2 years. Up-to-date with her colon cancer screening, had a negative Cologuard test in 2021, due again in 2024. Up-to-date with all her vaccinations but does not get flu shots. (2) Type 2 diabetes mellitus without complication, without long-term current use of insulin: Code(s): E11.9 - Type 2 diabetes mellitus without complications Plan: Recent lab results reviewed with patient, with sugar and hemoglobin A1c stable and at goal. Continue with metformin 500 mg 1 tablet at night with supper. Reinforced diabetic diet and regular exercise with patient. She is up-to-date with her yearly diabetes retinopathy screening. Patient advised to inspect feet daily, for any signs of injury, callus or infection. Compliance with diet and regular exercise again stressed. Blood pressure goal is less than 130/80, goal LDL is less than 100 and goal hemoglobin A1c is less than 7% follow-up appointment made in--3-months, after fasting labs done. (3) Chronic right sacroiliac joint pain: Code(s): M53.3 - Sacrococcygeal disorders, not elsewhere classified; G89.29 - Other chronic pain Plan: She takes meloxicam 7.5 mg 1 tablet daily as needed for pain. Has tried pain management which has not helped (4) Osteoarthritis involving multiple joints on both sides of body: Code(s): M15.9 - Polyosteoarthritis, unspecified Plan: Takes meloxicam as needed (5) Dyslipidemia: Code(s): E78.5 - Hyperlipidemia, unspecified Plan: Recent fasting labs showed results within normal limits except for LDL cholesterol which is still not at goal, but better than last check. Continue with take atorvastatin 10 mg once a day. Stressed importance of following recommended diet and getting regular exercise. Coding Level of Care Code Est Pt Prev Care >65y(78516) Diagnoses Annual visit for general adult medical examination with abnormal findings Z00.01 Type 2 diabetes mellitus without complication, without long-term current use of insulin E11.9 Chronic right sacroiliac joint pain M53.3; G89.29 Osteoarthritis involving multiple joints on both sides of body M15.9 Dyslipidemia E78.5 Additional Codes EVELIA-7 Assessment Billing - EVELIA-7 Assessment Tool: EVELIA-7 Assessment 66241 ([id number])
[2024-01-16 11:20] VITALS: BP 122/80; PULSE 71; O2SAT 97; BMI 28.9
== END 2024-01-16 12:19 | disposition home or self-care (01) ==
PROVIDERS: Visit Provider Internal Medicine
DX: Z00.00 Encounter for general adult medical examination without abnormal findings (principal); E11.69 Type 2 diabetes mellitus with other specified complication; M53.3 Sacrococcygeal disorders, not elsewhere classified; G89.29 Other chronic pain; M15.9 Polyosteoarthritis, unspecified; E78.5 Hyperlipidemia, unspecified
CPT/HCPCS: 99397

== ENCOUNTER 2024-02-04 07:27 | Outpatient (REF) | payer MEDICARE, SELFPAY ==
[2024-02-04 11:48] LABS: Estimated Average Glucose 120 mg/dL; Hemoglobin A1c % 5.8 % (<6.0)
[2024-02-04 11:50] LABS: Alanine Aminotransferase 10 U/L (0-31); Anion Gap 13 (12-20); Aspartate Amino Transferase 21 U/L (5-31); Blood Urea Nitrogen 19 mg/dL (9-16); Calcium 9.8 mg/dL (8.4-10.2); Carbon Dioxide 28 mmol/L (22-29); Chloride 107 mmol/L (96-108); Cholesterol 164 mg/dL (<200); Estimated Glomerular Filt Rate > 60; Glucose Fasting 113 mg/dL (60-99); HDL Cholesterol 40 mg/dL (>40); LDL Cholesterol Calculated 88 mg/dL (<100); Potassium 4.3 mmol/L (3.3-5.1); Sodium 144 mmol/L (135-145); Triglycerides 184 mg/dL (<150)
[2024-02-04 12:11] LABS: Vitamin D 25-OH Total 80.8 ng/mL (>30)
[2024-02-04 12:20] LABS: Creatinine Urine 111.73 mg/dL
== END 2024-02-04 07:28 | disposition home or self-care (01) ==
LOC: HO.HMGCLDS 07:27
PROVIDERS: PCP Internal Medicine; Visit Provider Internal Medicine
DX: E11.9 Type 2 diabetes mellitus without complications (principal); E78.5 Hyperlipidemia, unspecified; Z78.0 Asymptomatic menopausal state
CPT/HCPCS: 36415; 80048; 80061; 82043; 82306; 82570; 83036; 84450; 84460

== ENCOUNTER 2024-04-28 07:08 | Outpatient (REF) | payer MEDICARE, SELFPAY ==
[2024-04-28 11:15] LABS: Estimated Average Glucose 128 mg/dL; Hemoglobin A1C 148.8397 umol/L; Hemoglobin A1c % 6.1 % (<6.0)
[2024-04-28 11:25] LABS: Alanine Aminotransferase 8 U/L (0-31); Anion Gap 12 (12-20); Aspartate Amino Transferase 16 U/L (5-31); Blood Urea Nitrogen 18 mg/dL (9-16); Calcium 9.7 mg/dL (8.4-10.2); Carbon Dioxide 25 mmol/L (22-29); Chloride 108 mmol/L (96-108); Cholesterol 147 mg/dL (<200); Estimated Glomerular Filt Rate > 60; Glucose Fasting 133 mg/dL (60-99); HDL Cholesterol 40 mg/dL (>40); LDL Cholesterol Calculated 74 mg/dL (<100); Potassium 4.3 mmol/L (3.3-5.1); Sodium 141 mmol/L (135-145); Triglycerides 169 mg/dL (<150); Vitamin D 25-OH Total 49.3 ng/mL (>30)
== END 2024-04-28 07:09 | disposition home or self-care (01) ==
LOC: HO.HMGCLDS 07:08
PROVIDERS: PCP Internal Medicine; Visit Provider Internal Medicine
DX: E11.9 Type 2 diabetes mellitus without complications (principal); E78.5 Hyperlipidemia, unspecified; Z86.39 Personal history of other endocrine, nutritional and metabolic disease
CPT/HCPCS: 36415; 80048; 80061; 82306; 83036; 84450; 84460

== ENCOUNTER 2024-05-01 09:03 | Outpatient (AMB) | payer MEDICARE, SELFPAY ==
--- NOTE | 2024-05-01 09:00 | MHC.PC.OV ---
Vital Signs 05/01/24 09:04 Height 5 ft 3 in Weight 163 lb BMI 28.9 BP 123/68 Pulse 68 Pulse Source Pulse Oximeter Intake Visit Reasons: f/u labs android [phone] Intake Note: Pt is having a TH visit for her lab results Allergies codeine [CODEINE] Allergy (Severe, Verified 05/01/24 09:15) THROAT SWELLING omeprazole [From PRILOSEC] Allergy (Severe, Verified 05/01/24 09:15) SEVERE ABDOMINAL PAIN, stomach upset sulfamethoxazole [From BACTRIM] Allergy (Unknown, Verified 05/01/24 09:15) RASH vancomycin [VANCOMYCIN] Allergy (Unknown, Verified 05/01/24 09:15) RED RASH zoster vaccine live [SHINGLES VACCINE] Allergy (Unknown, Verified 05/01/24 09:15) RASH,HIVES Medication List - Last Reconciled 05/01/24 by Alana Tripp MD acetaminophen (Tylenol) 650 mg PO BID PRN atorvastatin 10 mg PO DAILY blood sugar diagnostic (L[employer] Ultra Test strips) CHECK FASTING BLOOD SUGAR ONCE DAILY BEFORE A MEAL blood-glucose meter (Laser [employer]uch Ultra2 Meter kit) As directed cholecalciferol (vitamin D3) 2,000 units PO DAILY famotidine 20 mg PO DAILY lancets test blood sugars once a day magnesium 250 mg PO DAILY meloxicam 7.5 mg PO DAILY PRN metformin ER 500 mg PO QPM Tobacco use date assessed: 05/01/24 Fall risk assessment: No Falls in past year Last assessed Fall Risk: 05/01/24 Dental Screening Dental Screen Date: 05/01/24 Did you have a dental visit in the last 12 months?: Yes Did you have a dental problem in the last 6 months where you did not have access to dental care?: No Was dental information given to patient?: Patient has dentist HPI f/u labs android [phone] HPI Details 68-year-old lady with hyperlipidemia, diabetes mellitus, without long-term insulin use, here today for follow-up. She had recent fasting labs done which showed higher hemoglobin A1c levels as compared to last check at 6.1%. Fasting lipids are within normal limits [facility] Medical History Heartburn symptom Mixed stress and urge urinary incontinence Chronic right sacroiliac joint pain Osteoarthritis involving multiple joints on both sides of body Dyslipidemia Surgical History H/O breast biopsy H/O abdominoplasty Status post bilateral breast reduction History of partial hysterectomy History of tonsillectomy Hx of appendectomy Status post total hip replacement, right History of total right knee replacement (~2019) Family History Father No problems noted. Mother No problems noted. Social History Housing: House Alcohol intake: never Patient Tobacco Use Status: Never used Tobacco e-Cigarette/Vaping Use: Never Used service: No Current occupational status: retired Current occupation: right handed Cognitive needs: No Hearing needs: No Vision needs: Yes Questionnaire Thrive Questionnaire Date Thrive assessed: 01/16/24 EVELIA-7 AMB Questionnaire EVELIA-7 Date EVELIA - 7 assessed: 01/16/24 Source: Developed by Drs. Kayode Jung, Lisette Saldivar, Yakov Nicole and colleagues, with an educational yuli from [employer]. Review of Systems Const Denies body aches, Denies fatigue, Denies fever(s), Denies headache(s) and Denies weakness Eyes Details: Goes to [employer] in [place], currently up-to-date with her diabetic retinopathy screening Denies change in vision ENT Denies dizziness, Denies headache(s) and Denies nasal congestion Card Denies chest pain, Denies lightheadedness, Denies palpitations and Denies dyspnea Resp Denies chest congestion, Denies cough, Denies dyspnea and Denies wheezing GI Denies abdominal pain, Denies change in bowel habits and Denies heartburn Denies urinary frequency, Denies dysuria and Denies urinary urgency Musc Reports abnormal gait, Reports arthralgias, Denies joint swelling and Reports stiffness Skin/Breast Denies lesions and Denies rash Neuro Reports abnormal gait, Denies dizziness, Denies headache(s) and Denies weakness Endo Denies fatigue, Denies polydipsia, Denies polyuria and Denies palpitations Suhas/Lymph Denies easy bruising Aller/Immun Denies seasonal rhinorrhea and Denies wheezing Physical exam (Primary Care) Vital Signs: Last Vital Signs Pulse 68 05/01/24 09:04 BP 123/68 05/01/24 09:04 BMI result Body Mass Index 28.9 Tobacco/Smoking Status: Tobacco use Status Tobacco use date assessed 05/01/24 05/01/24 09:03 Patient Tobacco Use Status Never used Tobacco 05/01/24 09:03 e-Cigarette/Vaping Use Never Used 05/01/24 09:03 Thrive Assessment: Date of Thrive Assessment Date Thrive assessed 01/16/24 05/01/24 09:03 Telehealth Telehealth Telehealth Platform: [employer] Location of provider rendering services: practice address Location of patient: address on file Patient Identification confirmed using: Name, : Yes Telehealth method: video Patient verbally consented to treatment: Yes Patient verbally consented to billing insurance company: Yes Patient informed of any privacy concerns related to visit: Yes Minutes spent on Phone/Video with Pt.: 15 Results Reviewed Results Reviewed: Laboratory Tests 02/04/24 04/28/24 07:32 07:13 Estimat Average Glucose 120 128 Hemoglobin A1c % 5.8 6.1 H Name: Deepti Harry Age/Sex: 68/F : 1955 Unit#: [id number] Attend Dr: Alana Tripp MD Re04/28/24 Status: DEP REF Location: [facility] Disch: SPEC : [id number] RONAN: 04/28/24 STATUS: COMP REQ : [id number] RECD: 04/28/24-[address]: Alana Tripp MD COMP: 04/28/24-5 ENTERED: 04/28/24-[address]: ORDERED: Met Prof Fast, AST, ALT, Lipid Panel, Vitamin D 25-OH Test Result Flag Reference Sodium 141 135-145 mmol/L Potassium 4.3 3.3-5.1 mmol/L CL 108 96-108 mmol/L CO2 25 22-29 mmol/L Gap 12 12-20 BUN 18 H 9-16 mg/dL Creat 0.82 0.5-1.4 mg/dL EGFR > 60 NOTE: For -Polish individuals, multiply the result by 1.210. Chronic Kidney Disease: Estimated GFR < 60 mL/min/1.73m2 Severe Kidney Disease: Estimated GFR < 15 mL/min/1.73m2 FBS 133 H 60-99 mg/dL A fasting glucose of 126 mg/dl or greater on more than one occasion is considered diagnostic of diabetes. CA 9.7 8.4-10.2 mg/dL AST (GOT) 16 5-31 U/L ALT (GPT) 8 0-31 U/L Triglyceride 169 H <150 mg/dL Desirable Triglyceride: less than 150 mg/dL Borderline High Triglyceride 150-199 mg/dL High Triglyceride: 200-499 mg/dL Very High Triglyceride: greater than or equal to 5OO mg/dL Cholesterol 147 <200 mg/dL Desirable Cholesterol: less than 200 mg/dL Borderline High Cholesterol: 200-239 mg/dL High Cholesterol: greater than 239 mg/dL LDL Calculated 74 <100 mg/dL Desirable LDL: less than 100 mg/dL Near Optimal/Above Optimal LDL: 110-129 mg/dL Borderline High LDL: 130-159 mg/dL High LDL: 160-189 mg/dL Very High LDL: greater than or equal to 190 mg/dL HDL 40 L >40 mg/dL Desirable HDL: greater than 40 mg/dL Note: This HDL assay may give artificially low results in patients with liver disease. Vit D 25-OH Tot 49.3 >30 ng/mL Health Based Reference Values* < 20 ng/mL Deficient 20-30 ng/mL Insufficient > 30 ng/mL Sufficient Assessment and Plan Assessment & Plan (1) Dyslipidemia: Code(s): E78.5 - Hyperlipidemia, unspecified Plan: Reviewed recent fasting lipid panel results with patient which showed normal findings except for elevated triglycerides. Reinforced importance of adhering to a low-cholesterol diet and getting regular exercise. Continued on atorvastatin 10 mg daily (2) Type 2 diabetes mellitus without complication, without long-term current use of insulin: Code(s): E11.9 - Type 2 diabetes mellitus without complications Plan: Recent lab results reviewed with patient, with sugar and hemoglobin A1c stable and at goal. Continue with metformin ER 500 mg 1 tablet at night with meals. continue to check fasting blood sugar at home, maintain log and bring to next appointment for review. Reinforced diabetic diet and regular exercise with patient. Counseled regarding importance of yearly diabetes retinopathy screening. Patient advised to inspect feet daily, for any signs of injury, callus or infection. Compliance with diet and regular exercise again stressed. Blood pressure goal is less than 130/80, goal LDL is less than 100 and goal hemoglobin A1c is less than 7% . Repeat another facet a fasting lipid panel in 4 months Orders: Orders Hemoglobin A1c 08/25/24 E11.9 - Type 2 diabetes mellitus without complications, E78.5 - Hyperlipidemia, unspecified Lipid Panel 08/25/24 E11.9 - Type 2 diabetes mellitus without complications, E78.5 - Hyperlipidemia, unspecified Coding Level of Care Code Tele Est Pt Level 4 (54342) Complex EM visit Add On G2211 Diagnoses Dyslipidemia E78.5 Type 2 diabetes mellitus without complication, without long-term current use of insulin E11.9
[2024-05-01 09:04] VITALS: BP 123/68; PULSE 68; BMI 28.9
== END 2024-05-01 11:40 | disposition home or self-care (01) ==
LOC: HO.HMGC 09:03
PROVIDERS: PCP Internal Medicine; Visit Provider Internal Medicine
DX: E78.5 Hyperlipidemia, unspecified (principal); E11.69 Type 2 diabetes mellitus with other specified complication
CPT/HCPCS: 99214; G2211

== ENCOUNTER 2024-08-28 08:51 | Outpatient (AMB) | payer MEDICARE, SELFPAY ==
--- NOTE | 2024-08-28 09:03 | MHC.OFFWIV ---
Intake Vital Signs 08/28/24 09:06 Height 5 ft 3 in Weight 162 lb BMI 28.7 BP 120/80 Blood Pressure Location Rt brachial Position Sitting Pulse 71 Pulse Source Pulse Oximeter Pulse Oximetry (%) 98 Oxygen Delivery Method Room Air Intake Visit Reasons: EP-rt hip pain Intake Note: Patient here for right hip pain. she does have a hx of surgery on it but the last week it has become very painful. Patient Tobacco Use Status: Never used Tobacco Allergies codeine [CODEINE] Allergy (Severe, Verified 08/28/24 09:06) THROAT SWELLING omeprazole [From PRILOSEC] Allergy (Severe, Verified 08/28/24 09:06) SEVERE ABDOMINAL PAIN, stomach upset sulfamethoxazole [From BACTRIM] Allergy (Unknown, Verified 08/28/24 09:06) RASH vancomycin [VANCOMYCIN] Allergy (Unknown, Verified 08/28/24 09:06) RED RASH zoster vaccine live [SHINGLES VACCINE] Allergy (Unknown, Verified 08/28/24 09:06) RASH,HIVES Do you need a note to return to daycare/school/sports/work: No HPI HPI Comments History of Present Illness Details 68 y/o female patient who presents to the walk in clinic with c/o right hip pain. Reports the pain located on right gluteal muscle, non radiating. S/p Right hip and knee replacements. Describes the pain as sharp and intermittent. She has tried Steroid/Gel injections, PT and nerve block in the past with no much relief. [facility] Medical History Heartburn symptom Mixed stress and urge urinary incontinence Chronic right sacroiliac joint pain Osteoarthritis involving multiple joints on both sides of body Dyslipidemia Surgical History H/O breast biopsy H/O abdominoplasty Status post bilateral breast reduction History of partial hysterectomy History of tonsillectomy Hx of appendectomy Status post total hip replacement, right History of total right knee replacement (~2019) Family History Father No problems noted. Mother No problems noted. Social History Housing: House Alcohol intake: never Patient Tobacco Use Status: Never used Tobacco e-Cigarette/Vaping Use: Never Used service: No Current occupational status: retired Current occupation: right handed Cognitive needs: No Hearing needs: No Vision needs: Yes Review of Systems Const All systems reviewed & are unremarkable except as noted in HPI and below Physical Exam Vital Signs: Last Vital Signs Pulse 71 08/28/24 09:06 BP 120/80 08/28/24 09:06 Pulse Ox 98 08/28/24 09:06 Oxygen Delivery Method Room Air 08/28/24 09:06 BMI result Body Mass Index 28.7 Const General: cooperative and no acute distress Orientation/consciousness: patient oriented x3 Back/Spine/Pelvis Back: back tenderness Sacrum: no erythema, no swelling, tenderness on the right and No sacral edema Coccyx: no swelling and no tenderness Neuro Other: Walks with a Cane General: patient oriented x3 and moves all extremities Extrem Right lower extremity: normal to inspection and hip/thigh Details: no crepitus Left lower extremity: normal to inspection Psych Speech and movement: Normal speech and movement present Assessment & Plan Assessment & Plan (1) Right hip pain: Code(s): M25.551 - Pain in right hip Plan: Advised to f/u with Orthopedics surgery Suspect Sciatica related pain Will Try Gabapentin low dose Plan F/U with PCP. Medications: New gabapentin 100 mg PO BID 60 caps 0RF M25.551 - Pain in right hip Coding Level of Care Code Est Pt Level 3 (69461) Diagnoses Right hip pain M25.551 Time Spent (min) 15
[2024-08-28 09:06] VITALS: BP 120/80; PULSE 71; O2SAT 98; BMI 28.7
== END 2024-08-28 09:57 | disposition home or self-care (01) ==
PROVIDERS: PCP Internal Medicine; Visit Provider Nurse Practitioner Family
DX: M25.551 Pain in right hip (principal)

== ENCOUNTER → 2024-08-28 08:51 | Outpatient (BNVA) | payer MEDICARE, SELFPAY | PROVIDERS: PCP Internal Medicine | DX: M25.551 Pain in right hip (principal) | CPT/HCPCS: 99212 ==

== ENCOUNTER 2024-09-01 07:32 | Outpatient (REF) | payer MEDICARE, SELFPAY ==
[2024-09-01 10:25] LABS: Cholesterol 161 mg/dL (<200); HDL Cholesterol 44 mg/dL (>40); LDL Cholesterol Calculated 85 mg/dL (<100); Triglycerides 160 mg/dL (<150)
[2024-09-01 10:50] LABS: Estimated Average Glucose 128 mg/dL; Hemoglobin A1C 164.2734 umol/L; Hemoglobin A1c % 6.1 % (<6.0); Total Hemoglobin (HGBA1C) 3799.4706 umol/L
== END 2024-09-01 07:33 | disposition home or self-care (01) ==
LOC: HO.HMGCLDS 07:32
PROVIDERS: PCP Internal Medicine; Visit Provider Internal Medicine
DX: E78.5 Hyperlipidemia, unspecified (principal); E11.9 Type 2 diabetes mellitus without complications
CPT/HCPCS: 36415; 80061; 83036

== ENCOUNTER 2024-12-17 13:20 | Outpatient (REF) | payer MEDICARE, SELFPAY | END 2024-12-17 13:21 | disposition home or self-care (01) | LOC: HO.MAMMO 13:20 | PROVIDERS: PCP Internal Medicine; Visit Provider Internal Medicine | DX: Z12.31 Encounter for screening mammogram for malignant neoplasm of breast (principal) | CPT/HCPCS: 77063; 77067 ==

== ENCOUNTER → 2024-12-17 13:30 | Outpatient (BNV) | payer MEDICARE, SELFPAY | PROVIDERS: PCP Internal Medicine; Visit Provider Internal Medicine | DX: Z12.31 Encounter for screening mammogram for malignant neoplasm of breast (principal) | CPT/HCPCS: 77063; 77067 ==

== ENCOUNTER 2025-01-14 07:09 | Outpatient (REF) | payer MEDICARE, SELFPAY ==
[2025-01-14 10:20] LABS: Estimated Average Glucose 131 mg/dL; Hemoglobin A1C 173.9376 umol/L; Hemoglobin A1c % 6.2 % (<6.0); Total Hemoglobin (HGBA1C) 3927.9169 umol/L
[2025-01-14 10:27] LABS: Creatinine Urine 118.86 mg/dL; Microalbum/Creatinine Ratio Ur 10.9 ug/mg cr (<30)
[2025-01-14 10:31] LABS: Alanine Aminotransferase 15 U/L (0-31); Anion Gap 11 (12-20); Aspartate Amino Transferase 26 U/L (5-31); Blood Urea Nitrogen 20 mg/dL (9-16); Calcium 9.8 mg/dL (8.4-10.2); Carbon Dioxide 28 mmol/L (22-29); Chloride 106 mmol/L (96-108); Cholesterol 161 mg/dL (<200); Estimated Glomerular Filt Rate > 60; Glucose Fasting 127 mg/dL (60-99); HDL Cholesterol 43 mg/dL (>40); LDL Cholesterol Calculated 87 mg/dL (<100); Potassium 4.1 mmol/L (3.3-5.1); Sodium 141 mmol/L (135-145); Triglycerides 157 mg/dL (<150)
== END 2025-01-14 07:10 | disposition home or self-care (01) ==
LOC: HO.HMGCLDS 07:09
PROVIDERS: PCP Internal Medicine; Visit Provider Internal Medicine
DX: E11.9 Type 2 diabetes mellitus without complications (principal); M15.9 Polyosteoarthritis, unspecified; E78.5 Hyperlipidemia, unspecified; Z78.0 Asymptomatic menopausal state
CPT/HCPCS: 36415; 80048; 80061; 82043; 82306; 82570; 83036; 84450; 84460

== ENCOUNTER 2025-01-21 13:57 | Outpatient (AMB) | payer MEDICARE, SELFPAY ==
--- NOTE | 2025-01-21 14:39 | A.OFFPC_ITS ---
Vital Signs 01/21/25 14:40 Height 5 ft 3 in Weight 164 lb BMI 29.0 BP 102/80 Blood Pressure Location Lt brachial Position Sitting Respiration 14 Pulse 89 Pulse Source Pulse Oximeter Temp 98.2 F Temp Source Oral Pulse Oximetry (%) 95 Oxygen Delivery Method Room Air Intake Visit Reasons: Annual PE Intake Note: Pt is here today for her PE: Last mammogram 12/17/24, bone density scan 12/12/23, colonoscopy 01/17/22 Allergies codeine [CODEINE] Allergy (Severe, Verified 01/21/25 14:57) THROAT SWELLING omeprazole [From PRILOSEC] Allergy (Severe, Verified 01/21/25 14:57) SEVERE ABDOMINAL PAIN, stomach upset sulfamethoxazole [From BACTRIM] Allergy (Unknown, Verified 01/21/25 14:57) RASH vancomycin [VANCOMYCIN] Allergy (Unknown, Verified 01/21/25 14:57) RED RASH zoster vaccine live [SHINGLES VACCINE] Allergy (Unknown, Verified 01/21/25 14:57) RASH,HIVES Medication List - Last Reconciled 01/21/25 by Alana Tripp MD acetaminophen (Tylenol) 650 mg PO BID PRN atorvastatin 10 mg PO DAILY blood sugar diagnostic ([employer] Ultra Test strips) CHECK FASTING BLOOD SUGAR ONCE DAILY BEFORE A MEAL blood-glucose meter As directed cholecalciferol (vitamin D3) 2,000 units PO DAILY famotidine 20 mg PO DAILY gabapentin Take 100 mg per tab orally in a.m., and 200 mg p.o. at bedtime 3 months lancets test blood sugars once a day magnesium 250 mg PO DAILY meloxicam 7.5 mg PO DAILY PRN metformin ER 500 mg PO QPM Tobacco use date assessed: 01/21/25 Fall risk assessment: No Falls in past year Last assessed Fall Risk: 01/21/25 Dental Screening Dental Screen Date: 01/21/25 Did you have a dental visit in the last 12 months?: Yes Did you have a dental problem in the last 6 months where you did not have access to dental care?: No Was dental information given to patient?: Patient has dentist HPI Annual PE HPI Details 61-year-old lady with past medical histo ry significant for diabetes mellitus, mixed stress and urge incontinence, osteoarthritis and dyslipidemia, here today for physical exam. She is up-to-date with her screening mammogram, last done 12/17/2024 with negative findings. Last bone density scan was done 12/12/2023 which showed osteopenia in left femoral neck and left femur with normal bone density in lumbar spine. Not due for recheck until next year. 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 Mother No problems noted. Social History Housing: House Alcohol intake: never Patient Tobacco Use Status: Never used Tobacco e-Cigarette/Vaping Use: Never Used service: No Current occupational status: retired Current occupation: right handed Cognitive needs: No Hearing needs: No Vision needs: Yes Questionnaire PHQ-9 Over the last 2 weeks, how often have you been bothered by any of the following problems? 1. Little interest or pleasure in doing things: not at all 2. Feeling down, depressed, or hopeless: not at all 3. Trouble falling or staying asleep, or sleeping too much: not at all 4. Feeling tired or having little energy: several days 5. Poor appetite or overeating: not at all 6. Feeling bad about yourself - or that you are a failure or have let yourself or your family down: not at all 7. Trouble concentrating on things, such as reading the newspaper or watching television: not at all 8. Moving or speaking so slowly that other people could have noticed. Or the opposite - being so fidgety or restless that you have been moving around a lot more than usual: not at all 9. Thoughts that you would be better off or of hurting yourself in some way: not at all Total score: 1 Depression Screening Interpretation: Negative Depression Screening Done: Yes 16549 - PHQ-9 Billing: Yes Source: Developed by Drs. Kayode Jung, Lisette Saldivar, Yakov Nicole and colleagues, with an educational yuli from [employer]. Thrive Questionnaire Date Thrive assessed: 01/14/25 I am a: Patient What is your living situation today?: I have a place to live, but I am worried about losing it in the future Within the past 12 months, did the food you bought not last and you didn't have the money to get more?: Never true Within the past 12 months, did you worry whether your food would run out before you got money to buy more?: Never true Do you have trouble paying for medicines?: No Do you have trouble getting transportation to medical appointments?: No Do you have trouble paying your heating and electricity bill?: No Do you have trouble taking care of your child, family member or friend?: No Do you have trouble with day-to-day activities such as bathing, preparing meals, shopping, managing finances, etc.?: No Are you currently unemployed and looking for a job?: No Are you interested in more education?: No THRIVE Score: 1 AUDIT C Alcohol Use Questionnaire (AUDIT-C) 1. How often do you have a drink containing alcohol?: Never Total Score: 0 EVELIA-7 AMB Questionnaire EVELIA-7 Date EVELIA - 7 assessed: 01/21/25 Feeling nervous, anxious, or on edge: 0 = Not at all Not being able to stop or control worryin = Not at all Worrying too much about different things: 0 = Not at all Trouble relaxin = Not at all Being so restless that it is hard to sit still: 0 = Not at all Becoming easily annoyed or irritable: 0 = Not at all Feeling afraid as if something awful might happen: 0 = Not at all Total EVELIA-7 score (0-4 normal; 5-9 mild; 10-14 moderate; 15-21 severe): 0 Source: Developed by Drs. Kayode Jung, Lisette Saldivar, Yakov Nicole and colleagues, with an educational yuli from [employer]. EVELIA-7 Assessment Billing EVELIA-7 Assessment Tool: EVELIA-7 Assessment 06205 Review of Systems Const Denies body aches, Denies fatigue, Denies fever(s), Denies headache(s) and Denies weakness Eyes Details: Goes to [facility] in [place], currently up-to-date with her diabetic retinopathy screening Denies change in vision ENT Denies dizziness, Denies headache(s) and Denies nasal congestion Card Denies chest pain, Denies lightheadedness, Denies palpitations and Denies dyspnea Resp Denies chest congestion, Denies cough, Denies dyspnea and Denies wheezing GI Denies abdominal pain, Denies change in bowel habits and Denies heartburn Denies urinary frequency, Denies dysuria and Denies urinary urgency Musc Reports abnormal gait, Reports back pain (Recurrent right sacroiliac pain, better on gabapentin 300 mg at bedtime), Denies arthralgias, Denies joint swelling and Reports stiffness Skin/Breast Denies lesions and Denies rash Neuro Reports abnormal gait, Denies dizziness, Denies headache(s) and Denies weakness Psych Reports no additional complaints Endo Denies fatigue, Denies polydipsia, Denies polyuria and Denies palpitations Suhas/Lymph Denies easy bruising Aller/Immun Denies seasonal rhinorrhea and Denies wheezing Physical exam (Primary Care) Vital Signs: Last Vital Signs Temp 98.2 F 01/21/25 14:40 Pulse 89 01/21/25 14:40 Resp 14 01/21/25 14:40 BP 102/80 01/21/25 14:40 Pulse Ox 95 01/21/25 14:40 Oxygen Delivery Method Room Air 01/21/25 14:40 BMI result Body Mass Index 29.0 Tobacco/Smoking Status: Tobacco use Status Tobacco use date assessed 01/21/25 01/21/25 14:42 Patient Tobacco Use Status Never used Tobacco 01/21/25 14:42 e-Cigarette/Vaping Use Never Used 01/21/25 14:42 Depression Screening Interpretation: Negative Thrive Assessment: Date of Thrive Assessment Date Thrive assessed 01/14/25 01/21/25 14:42 Advance Care Planning discussion: Completed/Scanned Date of discussion: 01/21/25 Who was present: Patient Forms completed: Health Care Proxy Time spent: 16-45 minutes Actual minutes spent: 2 Did not discuss due to Cultural/Spiritual beliefs: Yes Const General: comfortable, no acute distress and alert Orientation/consciousness: patient oriented x3 HENMT Head: Yes normocephalic Ears: hearing grossly normal bilaterally, external ears normal, TM's normal bilaterally and EAC's normal General nose exam: Normal external nose present Face and sinus: Yes face symmetric Mouth: oropharynx normal and moist mucous membranes Eyes General: appearance normal, both eyes and all related structures Neck Neck: Yes full ROM, Yes no lymphadenopathy and Yes supple Thyroid: Thyroid normal Chest Breast/axilla palpation: normal palpation of the breasts Resp Effort & Inspection: normal respiratory effort and able to speak in complete sentences Auscultation: clear to auscultation bilaterally Cardio Rate: regular rate Rhythm: regular rhythm Heart sounds: S1 normal heart sound present and S2 normal heart sound present GI Palpation (GI): Soft to palpation, nontender, no guarding and no masses Auscultation: normal bowel sounds General: Yes deferred Back/Spine/Pelvis Thoracic/Lumbar Spine: straight leg raise negative bilaterally, No thoraco- lumbar ROM limited and No lumbar spinal tenderness Skin General skin exam: no rashes or lesions noted Neuro General: patient oriented x3, moves all extremities, Normal light touch and pain sensation, no focal motor deficits, CN's II-XI intact bilaterally and normal sensation to monofilament Cognition (Neuro): normal cognition Gait exam (Neuro): Other gait observations present (Limping) Extrem Other: Positive trigger finger left 5th digit General: Yes full ROM, Yes no joint enlargement and Yes no pedal edema Psych Appearance: grossly normal and well kempt Mental Status: mental status grossly normal Speech and movement: Normal speech and movement present Affect: normal affect Attitude: cooperative Thought process: Normal thought process present Thought content: Normal thought content present Results Reviewed Results Reviewed: Laboratory Tests 01/14/25 07:14 Estimat Average Glucose 131 Hemoglobin A1c % 6.2 H Urine Creatinine 118.86 Urine Microalbumin 13.0 Microalb/Creat Ratio 10.9 Name: Deepti Harry Age/Sex: 69/F : 1955 Unit#: [id number] Attend Dr: Alana Tripp MD Re01/14/25 Status: DEP [facility] Disch: SPEC : [id number] RONAN: 01/14/25 STATUS: COMP REQ : [id number] RECD: 01/14/25-[address]: Alana Tripp MD COMP: 01/14/25 ENTERED: 01/14/[address] [facility] [address]: ORDERED: Met Prof Fast, AST, ALT, Lipid Panel, Vitamin D 25-OH Test Result Flag Reference Sodium 141 135-145 mmol/L Potassium 4.1 3.3-5.1 mmol/L CL 106 96-108 mmol/L CO2 28 22-29 mmol/L Gap 11 L 12-20 BUN 20 H 9-16 mg/dL Creat 0.80 0.5-1.4 mg/dL eGFR > 60 Chronic Kidney Disease: Estimated GFR < 60 mL/min/1.73m2 Severe Kidney Disease: Estimated GFR < 15 mL/min/1.73m2 FBS 127 H 60-99 mg/dL A fasting glucose of 126 mg/dl or greater on more than one occasion is considered diagnostic of diabetes. CA 9.8 8.4-10.2 mg/dL AST (GOT) 26 5-31 U/L ALT (GPT) 15 0-31 U/L Triglyceride 157 H <150 mg/dL Desirable Triglyceride: less than 150 mg/dL Borderline High Triglyceride 150-199 mg/dL High Triglyceride: 200-499 mg/dL Very High Triglyceride: greater than or equal to 5OO mg/dL Cholesterol 161 <200 mg/dL Desirable Cholesterol: less than 200 mg/dL Borderline High Cholesterol: 200-239 mg/dL High Cholesterol: greater than 239 mg/dL LDL Calculated 87 <100 mg/dL Desirable LDL: less than 100 mg/dL Near Optimal/Above Optimal LDL: 110-129 mg/dL Borderline High LDL: 130-159 mg/dL High LDL: 160-189 mg/dL Very High LDL: greater than or equal to 190 mg/dL HDL 43 >40 mg/dL Desirable HDL: greater than 40 mg/dL Note: This HDL assay may give artificially low results in patients with liver disease. Vit D 25-OH Tot 64.0 >30 ng/mL Health Based Reference Values* < 20 ng/mL Deficient 20-30 ng/mL Insufficient > 30 ng/mL Sufficient Coding Level of Care Code Est Pt Prev Care >65y(26121) Diagnoses Annual visit for general adult medical examination with abnormal findings Z00.01 Dyslipidemia E78.5 Type 2 diabetes mellitus without complication, without long-term current use of insulin E11.9 Dyspareunia in female N94.10 Chronic right sacroiliac joint pain M53.3; G89.29 Advanced directives, counseling/discussion Z71.89 Osteopenia of multiple sites M85.89 Vaccine refused by patient Z28.20 Additional Codes PHQ-9 - 27624 - PHQ-9 Billing: Yes ([id number]) EVELIA-7 Assessment Billing - EVELIA-7 Assessment Tool: EVELIA-7 Assessment 30879 ([id number]) Vital Signs *Quality* - Advance Care Planning discussion: Completed/Scanned ([id number]) Vital Signs *Quality* - Time spent: 16-45 minutes ([id number]) Vital Signs *Quality* - Did not discuss due to Cultural/Spiritual beliefs: Yes ([id number]) Assessment & Plan Assessment & Plan (1) Annual visit for general adult medical examination with abnormal findings: Code(s): Z00.01 - Encounter for general adult medical examination with abnormal findings Plan: Reviewed recent fasting lab results with patient. Continue regular dental visit every 6 months and yearly diabetes retinopathy screening. Take adequate calcium in diet and vitamin-D 3 at 2000 IU per cap once a day, in addition to weight- bearing exercises to help maintain good muscle tone and weight control. Instructed to do self-breast exam, and continue yearly mammogram, up-to-date with her bone density scan due again next year.. Patient does not want to get any vaccinations.. Due now for a repeat Cologuard test, last done 2021 with negative findings. (2) Dyslipidemia: Code(s): E78.5 - Hyperlipidemia, unspecified Category: Medical Plan: Reviewed recent fasting lipid profile with patient with levels within normal . Continue atorvastatin 10 mg daily , in addition to adherence to low- cholesterol diet and regular exercise, at least 30 minutes 3 to 4 times a week. Advised patient to make healthy food choices, eat more fruits, vegetables, whole grains, wild caught fish and low-fat dairy. Limit amount of meat and fried or fatty food products, as well as processed foods and fast foods. Follow-up scheduled with repeat fasting lipid panel in 6 months. (3) Type 2 diabetes mellitus without complication, without long-term current use of insulin: Code(s): E11.9 - Type 2 diabetes mellitus without complications Category: Medical Plan: Recent lab results reviewed with patient, with sugar and hemoglobin A1c stable and at goal. Continue with metformin ER 500 mg at night with supper continue to check fasting blood sugar at home, maintain log and bring to next appointment for review. Reinforced diabetic diet and regular exercise with patient. Up-to-date with her diabetes retinopathy screening, done 06/19/2024 Patient advised to inspect feet daily, for any signs of injury, callus or infection. Compliance with diet and regular exercise again stressed. Blood pressure goal is less than 130/80, goal LDL is less than 100 and goal hemoglobin A1c is less than 7% follow-up appointment made in--6-months, after fasting labs done. (4) Dyspareunia in female: Code(s): N94.10 - Unspecified dyspareunia Category: Medical Plan: Has an appointment with Dr. Mcghee for further evaluation management on 01/26/2025 (5) Chronic right sacroiliac joint pain: Code(s): M53.3 - Sacrococcygeal disorders, not elsewhere classified; G89.29 - Other chronic pain Category: Medical Plan: Continue with gabapentin 300 mg at bedtime (6) Advanced directives, counseling/discussion: Code(s): Z71.89 - Other specified counseling Plan: Initiated the conversation about Advanced Directives. Advanced Directives help patients prepare for current and future decisions about their medical treatment and place of care. Discussed with patient that it is a process where a patients current condition and prognosis are reviewed, their wishes for information regarding their illness are elicited, and likely medical dilemmas are presented and options discussed. Healthcare proxy form completed today. The form can be amended as needed, reviewed yearly and make changes as needed (7) Osteopenia of multiple sites: Code(s): M85.89 - Other specified disorders of bone density and structure, multiple sites Category: Medical Plan: Last bone density scan was done 24 which showed presence of osteopenia left femoral neck and left femu, normal bone density in lumbar spine. Will repeat another bone density scan next year in the meantime continue with taking cholecalciferol at least 2000 units daily and take adequate calcium from dietary sources, and do regular weight-bearing exercise (8) Vaccine refused by patient: Code(s): Z28.20 - Immunization not carried out because of patient decision for unspecified reason Category: Medical Plan: Patient declines all offered adult vaccinations Orders: Orders Hemoglobin A1c 6 Months E11.9 - Type 2 diabetes mellitus without complications, E78.5 - Hyperlipidemia, unspecified, Z78.0 - Asymptomatic menopausal state Alanine Aminotransferase 6 Months E11.9 - Type 2 diabetes mellitus without complications, E78.5 - Hyperlipidemia, unspecified, Z78.0 - Asymptomatic menopausal state Aspartate Amino Transferase 6 Months E11.9 - Type 2 diabetes mellitus without complications, E78.5 - Hyperlipidemia, unspecified, Z78.0 - Asymptomatic menopausal state Basic Metabolic Panel Fasting 6 Months E11.9 - Type 2 diabetes mellitus without complications, E78.5 - Hyperlipidemia, unspecified, Z78.0 - Asymptomatic menopausal state Lipid Panel 6 Months E11.9 - Type 2 diabetes mellitus without complications, E78.5 - Hyperlipidemia, unspecified, Z78.0 - Asymptomatic menopausal state Vitamin D 25-OH Total 6 Months E11.9 - Type 2 diabetes mellitus without complications, E78.5 - Hyperlipidemia, unspecified, Z78.0 - Asymptomatic menopausal state Referrals Cologuard Test Z12.11 - Encounter for screening for malignant neoplasm of colon, Z12.12 - Encounter for screening for malignant neoplasm of rectum
[2025-01-21 14:40] VITALS: BP 102/80; PULSE 89; RESP 14; TEMP 36.8; O2SAT 95; BMI 29.0
--- OUTSIDE RECORDS SUMMARY | 2025-01-21 16:51 | XMS_ITS | Clinical Summary ---
Author Organization [facility] Address [address] [place] [address] Care Team Providers Care Program Project Manager Name Role Phone Alana Tripp MD Primary Care Provider +1 [phone] Allergies Active Allergy Reactions Criticality Noted Date Comments Sulfamethoxazole-Trimethoprim 2020 Omeprazole 05/12/2021 Vancomycin 05/12/2021 Medications Medication Sig Dispensed Refills Start Date End Date Status Multiple Vitamins-Minerals (CENTRUM SILVER 50+WOMEN PO) Take by mouth. 0 Active acetaminophen (TYLENOL) 325 MG tablet Take 650 mg by mouth every 6 (six) hours as needed for pain. 0 Active amoxicillin (AMOXIL) 500 MG capsule Take 500 mg by mouth 3 (three) times a day. 0 Active methylPREDNISolone (MEDROL DOSEPACK) 4 MG tablet follow package directions 21 tablet 0 05/16/2021 Active Family History Medical History Relation Name Comments Cancer Brother Diabetes Mother Hypertension Mother Cancer Sister Relation Name Status Comments Brother Mother Sister Social History Tobacco Use Types Packs/Day Years Used Date Smoking Tobacco: Never Smokeless Tobacco: Never Alcohol Use Standard Drinks/Week Comments Never 0 (1 standard drink = 0.6 oz pur e alcohol) Sex and Gender Information Value Date Recorded Sex Assigned at Not on file Gender Identity Not on file Sexual Orientation Not on file Job Start Date Occupation Industry Not on file Not on file Not on file Last Filed Vital Signs Vital Sign Reading Time Taken Comments Blood Pressure - - Pulse - - Temperature - - Respiratory Rate - - Oxygen Saturation - - Inhaled Oxygen Concentration - - Weight 83.6 kg (184 lb 3.2 oz) 05/12/2021 11:08 AM EDT Height 160 cm (5' 3 ) 05/12/2021 11:08 AM EDT Body Mass Index 32.63 05/12/2021 11:08 AM EDT Plan of Treatment Health Maintenance Due Date Last Done Comments Hepatitis C Screening 1955 COVID-19 Vaccine (#1) 04/11/1957 Depression Screening 1968 BMI Counseling 1974 Preventative Health Evaluation 1974 DTap / Tdap / Td (1 - Tdap) 1975 Colon Cancer Screening (Colonoscopy) 2001 Breast Cancer Screening (Mammogram) 2006 Shingrix-Zoster Vaccine (1 of 2) 2006 Fall Risk Assessment 2021 Osteoporosis Screening (DEXA Scan) 2021 Pneumococcal Vaccine (1 of 1 - PCV) 2021 Influenza Vaccine (#1) 2024 RSV Adult > 60+ Yrs or Pregn ant (1 - 1-dose 75+ series) 2031 Hepatitis B Vaccines Aged Out No long er eligible based on patient's age to complete this topic RSV Ped < 20 months Aged Out No longe r eligible based on patient's age to complete this topic Care Teams Program Project Manager Relationship Specialty Start Date End Date Alana Tripp MD [address] [place] [address] PCP - General Internal Medicine 04/28/21
== END 2025-01-21 15:22 | disposition home or self-care (01) ==
PROVIDERS: PCP Internal Medicine; Visit Provider Internal Medicine
DX: Z00.01 Encounter for general adult medical examination with abnormal findings (principal); E78.5 Hyperlipidemia, unspecified; E11.9 Type 2 diabetes mellitus without complications; N94.10 Unspecified dyspareunia; M53.3 Sacrococcygeal disorders, not elsewhere classified; G89.29 Other chronic pain; Z71.89 Other specified counseling; M85.89 Other specified disorders of bone density and structure, multiple sites; Z28.20 Immunization not carried out because of patient decision for unspecified reason; Z00.00 Encounter for general adult medical examination without abnormal findings

== ENCOUNTER → 2025-01-21 13:57 | Outpatient (BNVA) | payer MEDICARE, SELFPAY | PROVIDERS: PCP Internal Medicine; Visit Provider Internal Medicine | DX: Z00.01 Encounter for general adult medical examination with abnormal findings (principal); E78.5 Hyperlipidemia, unspecified; E11.9 Type 2 diabetes mellitus without complications; N94.10 Unspecified dyspareunia; M53.3 Sacrococcygeal disorders, not elsewhere classified; G89.29 Other chronic pain; M85.89 Other specified disorders of bone density and structure, multiple sites; Z28.20 Immunization not carried out because of patient decision for unspecified reason; Z71.89 Other specified counseling | CPT/HCPCS: 96127; 99397; 99497 ==

== ENCOUNTER 2025-01-26 10:31 | Outpatient (REF) | payer MEDICARE, SELFPAY ==
--- OUTSIDE RECORDS SUMMARY | 2025-01-26 14:10 | XMS_ITS | Clinical Summary ---
Author Organization [facility] Address [address] [place] [address] Care Team Providers Care Refrigerator Glazier Name Role Phone Alana Tripp MD Primary Care Provider [phone] [phone] Allergies Active Allergy Reactions Criticality Noted Date [...] age to complete this topic Care Teams Refrigerator Glazier Relationship Specialty Start Date End Date Alana Tripp MD [address] [place] [address] PCP - General Internal Medicine 04/28/21
== END 2025-01-26 10:32 | disposition home or self-care (01) ==
LOC: HO.LNP 10:31
PROVIDERS: PCP Internal Medicine; Visit Provider Obstetrics & Gynecology
DX: N94.10 Unspecified dyspareunia (principal); R31.29 Other microscopic hematuria
CPT/HCPCS: 99202

== ENCOUNTER 2025-01-26 10:31 | Outpatient (AMB) | payer MEDICARE, SELFPAY ==
[2025-01-26 10:33] VITALS: BP 140/80; BMI 29.0
--- NOTE | 2025-01-26 10:33 | MHC.OFFVIS ---
Vital Signs 01/26/25 10:33 Height 5 ft 3 in Weight 164 lb BMI 29.0 BP 140/80 H Intake Visit Reasons: Dyspareunia Lithograph Press Operator Required: No Information Interpreted: non-clinical & clinical Enterprise Application Architect: Enterprise Application Architect Present (Clementina Vinson HAM) Accompanied by: Self / Same As Patient Allergies codeine [CODEINE] Allergy (Severe, Verified 01/26/25 10:40) THROAT SWELLING omeprazole [From PRILOSEC] Allergy (Severe, Verified 01/26/25 10:40) SEVERE ABDOMINAL PAIN, stomach upset sulfamethoxazole [From BACTRIM] Allergy (Unknown, Verified 01/26/25 10:40) RASH vancomycin [VANCOMYCIN] Allergy (Unknown, Verified 01/26/25 10:40) RED RASH zoster vaccine live [SHINGLES VACCINE] Allergy (Unknown, Verified 01/26/25 10:40) RASH,HIVES Post menopausal: Yes HPI Comments Details: Presenting complaining of painful intercourse over the last 2 years. The patient is status post hysterectomy without bilateral salpingo-oophorectomy 20 years ago, no associated vaginal discharge or bleeding no urinary or GI symptoms last Pap smear was 20 years ago which was normal, no history of abnormal Pap smears according to the patient, no records available Last mammogram was BI-RADS 2 in 12/19 [facility] Medical History Vaccine refused by patient Osteopenia of multiple sites Heartburn symptom Mixed stress and urge urinary incontinence Chronic right sacroiliac joint pain Osteoarthritis involving multiple joints on both sides of body Dyslipidemia Surgical History H/O breast biopsy H/O abdominoplasty Status post bilateral breast reduction History of partial hysterectomy History of tonsillectomy Hx of appendectomy Status post total hip replacement, right History of total right knee replacement (~2019) Family History Father No problems noted. Mother No problems noted. Social History Housing: House Alcohol intake: never Patient Tobacco Use Status: Never used Tobacco e-Cigarette/Vaping Use: Never Used service: No Current occupational status: retired Current occupation: right handed Cognitive needs: No Hearing needs: No Vision needs: Yes Review of Systems Const All systems reviewed & are unremarkable except as noted in HPI and below Card Reports as per HPI and Reports no additional complaints Resp Reports as per HPI and Reports no additional complaints GI Reports as per HPI and Reports no additional complaints Reports as per HPI Physical Exam Vital Signs: Last Vital Signs BP 140/80 H 01/26/25 10:33 BMI result Body Mass Index 29.0 Const General: cooperative, healthy appearing and comfortable General: Yes bladder normal to palpation External Female Exam: No lesion Speculum Exam - Vagina: not erythematous and other (Atrophic looking) Speculum Exam - Cervix: Cervix absent Bimanual exam- vagina & uterus: bladder normal to palpation and uterus absent Bimanual Exam- Adnexa, other: Other (No masses detected) Assessment & Plan Assessment & Plan (1) Dyspareunia in female: Code(s): N94.10 - Unspecified dyspareunia Category: Medical Plan: Pelvic ultrasound ordered to rule out adnexal masses as a cause of dyspareunia. Discussed with the patient differential diagnosis of dyspareunia including but not limited atrophic vaginitis, pelvic masses or urinary and other. Instructions given the patient to schedule an ultrasound a 2 week follow-up appointment (2) Microscopic hematuria: Code(s): R31.29 - Other microscopic hematuria Category: Medical Plan: Urine dip showed microscopic hematuria, urine culture sent. Will repeat urine dip in 2 weeks. Discussed with the patient the possible causes of microscopic hematuria including but not limited to: interstitial cystitis, polyps, stones, masses, urethral inflammatory processes and others. If Urine Culture is negative and repeat urine dip in 2 weeks shows persistent microscopic hematuria, will proceed with CT abdomen/pelvis and urology referral. Instructions given the patient to schedule a 2 week urine dip follow-up appointment. All questions answered and the patient verbalized understanding. Orders: Orders US pelvic and transvaginal Today N94.10 - Unspecified dyspareunia Coding Level of Care Code New Pt Level 3 (70766) Diagnoses Dyspareunia in female N94.10 Microscopic hematuria R31.29
--- OUTSIDE RECORDS SUMMARY | 2025-01-26 12:48 | XMS_ITS | Clinical Summary ---
Author Organization [facility] Address [address] [place] [address] Care Team Providers Care Maritime Guard Name Role Phone Alana Tripp MD Primary Care Provider [phone] [phone] Allergies Active Allergy Reactions Criticality Noted Date [...] age to complete this topic Care Teams Maritime Guard Relationship Specialty Start Date End Date Alana Tripp MD [address] [place] [address] PCP - General Internal Medicine 04/28/21
== END 2025-01-26 11:07 | disposition home or self-care (01) ==
LOC: HO.HWS 10:31
PROVIDERS: PCP Internal Medicine; Visit Provider Obstetrics & Gynecology
DX: N94.10 Unspecified dyspareunia (principal); R31.29 Other microscopic hematuria
CPT/HCPCS: 99203

== ENCOUNTER 2025-01-28 08:31 | Outpatient (REF) | payer MEDICARE, SELFPAY ==
--- OUTSIDE RECORDS SUMMARY | 2025-01-28 08:57 | XMS_ITS | Clinical Summary ---
Author Organization [facility] Address [address] [place] [address] Care Team Providers Care Recruiting Manager Name Role Phone Alana Tripp MD Primary Care Provider +1 [phone] Allergies Active Allergy Reactions Criticality Noted Date [...] age to complete this topic Care Teams Recruiting Manager Relationship Specialty Start Date End Date Alana Tripp MD [address] [place] [address] PCP - General Internal Medicine 04/28/21
== END 2025-01-28 08:32 | disposition home or self-care (01) ==
LOC: HO.HMGCLDS 08:31
PROVIDERS: PCP Internal Medicine; Visit Provider Obstetrics & Gynecology
DX: R31.29 Other microscopic hematuria (principal)
CPT/HCPCS: 87086

== ENCOUNTER 2025-02-12 13:32 | Outpatient (REF) | payer MEDICARE, SELFPAY ==
--- NOTE | ~2025-02-12 | US_ITS ---
CLINICAL HISTORY: N94.10 - Unspecified dyspareunia, VAGINAL PAIN US pelvis transabdominal. Comparison: None Findings: Transabdominal scanning performed. Status post remote hysterectomy. Neither ovary is identified. No pelvic mass seen Impression: Status post hysterectomy. Neither ovary is identified. No pelvic mass. This document has been electronically signed by: Harinder Peña MD on 02/13/2025 14:19:34
--- OUTSIDE RECORDS SUMMARY | 2025-02-12 15:51 | XMS_ITS | Clinical Summary ---
Author Organization [facility] Address [address] [place] [address] Care Team Providers Care Concrete Floor Installer Name Role Phone Alana Tripp MD Primary Care Provider +1 [phone] Allergies Active Allergy Reactions Criticality Noted Date [...] age to complete this topic Care Teams Concrete Floor Installer Relationship Specialty Start Date End Date Alana Tripp MD [address] [place] [address] PCP - General Internal Medicine 04/28/21
== END 2025-02-12 13:33 | disposition home or self-care (01) ==
LOC: HO.US 13:32
PROVIDERS: PCP Internal Medicine; Visit Provider Obstetrics & Gynecology
DX: N94.10 Unspecified dyspareunia (principal)
CPT/HCPCS: 76856

== ENCOUNTER 2025-04-08 08:55 | Outpatient (AMB) | payer MEDICARE, SELFPAY ==
--- NOTE | 2025-04-08 09:01 | MHC.OFFVIS ---
Vital Signs 04/08/25 09:03 Height 5 ft 3 in Weight 164 lb BMI 29.0 Intake Visit Reasons: US follow up/Urine dip Baseball Winder Required: No Information Interpreted: non-clinical & clinical Accompanied by: Self / Same As Patient Allergies codeine [CODEINE] Allergy (Severe, Verified 04/08/25 09:04) THROAT SWELLING omeprazole [From PRILOSEC] Allergy (Severe, Verified 04/08/25 09:04) SEVERE ABDOMINAL PAIN, stomach upset sulfamethoxazole [From BACTRIM] Allergy (Unknown, Verified 04/08/25 09:04) RASH vancomycin [VANCOMYCIN] Allergy (Unknown, Verified 04/08/25 09:04) RED RASH zoster vaccine live [SHINGLES VACCINE] Allergy (Unknown, Verified 04/08/25 09:04) RASH,HIVES Post menopausal: Yes HPI Comments Details: Presenting for follow-up ultrasound and repeat urine dip regarding dyspareunia. Last urine dip was positive for microscopic hematuria, urine culture was negative. Pelvic ultrasound done on 02/13/2025 showed the following: Transabdominal scanning performed. Status post remote hysterectomy. Neither ovary is identified. No pelvic mass seen [facility] Medical History Vaccine refused by patient Osteopenia of multiple sites Heartburn symptom Mixed stress and urge urinary incontinence Chronic right sacroiliac joint pain Osteoarthritis involving multiple joints on both sides of body Dyslipidemia Surgical History H/O breast biopsy H/O abdominoplasty Status post bilateral breast reduction History of partial hysterectomy History of tonsillectomy Hx of appendectomy Status post total hip replacement, right History of total right knee replacement (~2019) Family History Father No problems noted. Mother No problems noted. Social History Housing: House Alcohol intake: never Patient Tobacco Use Status: Never used Tobacco e-Cigarette/Vaping Use: Never Used service: No Current occupational status: retired Current occupation: right handed Cognitive needs: No Hearing needs: No Vision needs: Yes Review of Systems Const All systems reviewed & are unremarkable except as noted in HPI and below Reports as per HPI and Reports no additional complaints GI Reports no additional complaints Reports no additional complaints Physical Exam Vital Signs: BMI result Body Mass Index 29.0 Assessment & Plan Assessment & Plan (1) Microscopic hematuria: Code(s): R31.29 - Other microscopic hematuria Category: Medical Plan: Repeat urine dip showed persistent microscopic hematuria. Discussed with the patient the possible causes of microscopic hematuria including but not limited to: interstitial cystitis, polyps, stones, masses, urethral inflammatory processes and others. Will proceed with CT abdomen/pelvis and urology referral. All questions answered and the patient verbalized understanding. Instructed the patient to call our office back in case a referral appointment is not scheduled, missed or canceled so that we will assist on rescheduling another appointment, the patient verbalized understanding agreed with the plan. (2) Dyspareunia in female: Code(s): N94.10 - Unspecified dyspareunia Category: Medical Plan: Discussed with the patient the results of the workup done including urine dip and pelvic ultrasound. Differential diagnosis of cd storage and materials make up helper causes that have not be ruled out yet include but not limited to pelvic adhesions , GI, , non cd storage and materials make up helper causes, or others. Recommended for the patient to see her PCP for further workup for non cd storage and materials make up helper causes; if the all the results are negative and the patient's dyspareunia is persistent, instructions given to patient to call back for further testing. Meanwhile, instructions were given the patient to go to emergency room or call in case of fever above 100.4, heavy vaginal bleeding, persistence or worsening of her pelvic pain. All questions answered, the patient verbalized understanding. Orders: Orders CT abdomen pelvis wo/w IV con Today R31.29 - Other microscopic hematuria Referrals Urology Referral R31.29 - Other microscopic hematuria Coding Level of Care Code Est Pt Level 3 (98844) Diagnoses Microscopic hematuria R31.29 Dyspareunia in female N94.10
[2025-04-08 09:03] VITALS: BMI 29.0
--- OUTSIDE RECORDS SUMMARY | 2025-04-08 09:21 | XMS_ITS | Clinical Summary ---
Author Organization [facility] Address [address] [place] [address] Care Team Providers Care Diesel Tractor Operator Name Role Phone Alana Tripp MD Primary Care Provider [phone] [phone] Allergies Active Allergy Reactions Criticality Noted Date [...] age to complete this topic Care Teams Diesel Tractor Operator Relationship Specialty Start Date End Date Alana Tripp MD [address] [place] [address] PCP - General Internal Medicine 04/28/21
== END 2025-04-08 09:30 | disposition home or self-care (01) ==
LOC: HO.HWS 08:55
PROVIDERS: PCP Internal Medicine; Visit Provider Obstetrics & Gynecology
DX: R31.29 Other microscopic hematuria (principal); N94.10 Unspecified dyspareunia
CPT/HCPCS: 99213

== ENCOUNTER → 2025-04-08 08:55 | Outpatient (BNVA) | payer MEDICARE, SELFPAY | PROVIDERS: PCP Internal Medicine; Visit Provider Obstetrics & Gynecology | DX: R31.29 Other microscopic hematuria (principal); N94.10 Unspecified dyspareunia | CPT/HCPCS: 99212 ==

== ENCOUNTER 2025-04-15 09:58 | Outpatient (REF) | payer MEDICARE, SELFPAY ==
--- OUTSIDE RECORDS SUMMARY | 2025-04-15 10:20 | XMS_ITS | Clinical Summary ---
Author Organization [facility] Address [address] [place] [address] Care Team Providers Care Geology Teacher Name Role Phone Alana Tripp MD Primary Care Provider +1 [phone] Allergies Active Allergy Reactions Criticality Noted Date [...] age to complete this topic Care Teams Geology Teacher Relationship Specialty Start Date End Date Alana Tirpp MD [address] [place] [address] PCP - General Internal Medicine 04/28/21
[2025-04-15 13:32] LABS: Blood Urea Nitrogen 17 mg/dL (9-16); Estimated Glomerular Filt Rate > 60
== END 2025-04-15 09:59 | disposition home or self-care (01) ==
LOC: HO.HMGCLDS 09:58
PROVIDERS: PCP Internal Medicine; Visit Provider Obstetrics & Gynecology
DX: R31.29 Other microscopic hematuria (principal)
CPT/HCPCS: 36415; 82565; 84520

== ENCOUNTER 2025-05-10 14:41 | Outpatient (REF) | payer MEDICARE, SELFPAY ==
--- NOTE | ~2025-05-10 | CT_ITS ---
EXAMINATION: CT ABDOMEN AND PELVIS WITHOUT AND WITH CONTRAST CLINICAL INFORMATION: Microscopic hematuria DLP: 840 mGY*cm COMPARISON: None available. TECHNIQUE: Multidetector volumetric imaging was performed of the abdomen and pelvis before and after the IV administration of 85 mL of Omnipaque 300 intravenous contrast. Sagittal and coronal reformatted images were obtained on the technologist's workstation. This CT examination was performed using dose optimization techniques as appropriate, variously including the following: *Automated exposure control *Adjustment of mA and/or kV according to patient size (this includes techniques or standardized protocols for targeted exams where dose is matched to indication/reason for exam; i.e. extremities or head) *Use of iterative reconstruction technique FINDINGS: LUNG BASES: The visualized lung bases are unremarkable. LIVER, GALLBLADDER, AND BILIARY TREE: Diffuse fatty changes are evident in the liver. The gallbladder is unremarkable with no evidence of radiopaque gallstones, gallbladder wall thickening, or obvious pericholecystic inflammatory changes. PANCREAS: Unremarkable SPLEEN: Unremarkable ADRENAL GLANDS: Unremarkable KIDNEYS AND URETERS: Nonenhancing fluid density lesion in the upper right kidney 12 mm in diameter is diagnostic of a benign simple renal cysts. Distal ureters are obscured by metal artifact related to right total hip arthroplasty. Otherwise, no sign of hydroureter or ureteral stone. With contrast, there is symmetric concentration and excretion of contrast into both urinary tracts and into the bladder. BLADDER: Unremarkable , obscured by metal artifact. GASTROINTESTINAL TRACT: There is a small sliding hiatal hernia. The appendix is nonvisualized. ABDOMINAL WALL: No significant hernia is appreciated. LYMPH NODES: Normal VASCULAR: Minimal multifocal atherosclerotic calcific lesions are present in the abdominal aorta PELVIC VISCERA: Ovaries are unremarkable. Uterus is surgically absent. OSSEOUS STRUCTURES: Multilevel degenerative disc disease and facet osteoarthritis is apparent. There is mild levoscoliosis of the lumbar spine. Additional, there is moderate degenerative change in the left hip joint with axial joint space narrowing and marginal osteophytes from the femoral head, fovea, and acetabulum. Right total hip arthroplasty is incompletely imaged. CT/CT abdomen pelvis wo/w IV con IMPRESSION: There is a small sliding hiatal hernia. Hysterectomy Multilevel degenerative disc disease and facet arthropathy. Moderate left hip joint osteoarthritis. Fleischner guidelines were followed. Electronically signed by: Chava Wolf MD 05/10/2025 04:39 PM EDT
[2025-05-10] MEDS: iohexoL 350 MG/ML 100 ML INFUS..BTL IV (16:01)
--- OUTSIDE RECORDS SUMMARY | 2025-05-10 16:26 | XMS_ITS | Clinical Summary ---
Author Organization [facility] Address [address] [place] [address] Care Team Providers Care Smelter Liner Name Role Phone Alana Tripp MD Primary Care Provider +1 [phone] Allergies Active Allergy Reactions Criticality Noted Date [...] of 1 - PCV) 2021 Influenza Vaccine (Season Ended) 2025 RSV Adult > 60+ Yrs or Pregn ant (1 - 1-dose 75+ series) 2031 Hepatitis B Vaccines Aged Out No long er eligible based on patient's age to complete this topic RSV Ped < 20 months Aged Out No longe r eligible based on patient's age to complete this topic Care Teams Smelter Liner Relationship Specialty Start Date End Date Alana Tripp MD [address] [place] [address] PCP - General Internal Medicine 04/28/21
== END 2025-05-10 14:42 | disposition home or self-care (01) ==
LOC: HO.CT 14:41
PROVIDERS: PCP Internal Medicine; Visit Provider Obstetrics & Gynecology
DX: R31.29 Other microscopic hematuria (principal)
CPT/HCPCS: 74178; Q9967

== ENCOUNTER → 2025-05-10 14:43 | Outpatient (BNV) | payer MEDICARE, SELFPAY | PROVIDERS: PCP Internal Medicine; Visit Provider Radiology Diagnostic Radiology | DX: K44.9 Diaphragmatic hernia without obstruction or gangrene (principal); M16.12 Unilateral primary osteoarthritis, left hip | CPT/HCPCS: 74178 ==

== ENCOUNTER 2025-07-21 07:04 | Outpatient (REF) | payer MEDICARE, SELFPAY ==
--- OUTSIDE RECORDS SUMMARY | 2025-07-21 07:07 | XMS_ITS | Clinical Summary ---
Author Organization [facility] Address [address] [place] [address] Care Team Providers Care Urgent Care Physician Name Role Phone Alaan Tripp MD Primary Care Provider +1 -[phone] Allergies Active Allergy Reactions Criticality Noted Date [...] 1 - PCV) 2021 Influenza Vaccine (#1) 2025 RSV Adult > 60+ Yrs or Pregn ant (1 - 1-dose 75+ series) 2031 Hepatitis B Vaccines Aged Out No long er eligible based on patient's age to complete this topic RSV Ped < 20 months Aged Out No longe r eligible based on patient's age to complete this topic Care Teams Urgent Care Physician Relationship Specialty Start Date End Date Alana Tripp MD [address] [place] [address] PCP - General Internal Medicine 04/28/21
[2025-07-21 10:41] LABS: Alanine Aminotransferase 11 U/L (0-31); Anion Gap 11 (12-20); Aspartate Amino Transferase 26 U/L (5-31); Blood Urea Nitrogen 19 mg/dL (9-16); Calcium 9.4 mg/dL (8.4-10.2); Carbon Dioxide 28 mmol/L (22-29); Chloride 105 mmol/L (96-108); Cholesterol 163 mg/dL (<200); Estimated Glomerular Filt Rate > 60; HDL Cholesterol 42 mg/dL (>40); Potassium 4.2 mmol/L (3.3-5.1); Sodium 140 mmol/L (135-145); Triglycerides 168 mg/dL (<150)
[2025-07-21 10:51] LABS: Hemoglobin A1C 188.0809 umol/L; Total Hemoglobin (HGBA1C) 3887.9031 umol/L
== END 2025-07-21 07:05 | disposition home or self-care (01) ==
LOC: HO.HMGCLDS 07:04
PROVIDERS: PCP Internal Medicine; Visit Provider Internal Medicine
DX: E11.9 Type 2 diabetes mellitus without complications (principal); E78.5 Hyperlipidemia, unspecified; Z78.0 Asymptomatic menopausal state
CPT/HCPCS: 36415; 80048; 80061; 82306; 83036; 84450; 84460

== ENCOUNTER 2025-10-04 11:28 | Outpatient (AMB) | payer MEDICARE, SELFPAY ==
[2025-10-04 11:42] VITALS: BP 126/74; BMI 29.6
--- NOTE | 2025-10-04 11:42 | MHC.OFFVIS ---
Vital Signs 10/04/25 11:42 Height 5 ft 3 in Weight 167 lb BMI 29.6 BP 126/74 Intake Visit Reasons: CT scan results Hydropress Operator Required: No Information Interpreted: non-clinical & clinical Accompanied by: Self / Same As Patient Allergies codeine (CODEINE) Allergy (Severe, Verified 10/04/25 11:47) THROAT SWELLING omeprazole (From PRILOSEC) Allergy (Severe, Verified 10/04/25 11:47) SEVERE ABDOMINAL PAIN, stomach upset sulfamethoxazole (From BACTRIM) Allergy (Unknown, Verified 10/04/25 11:47) RASH vancomycin (VANCOMYCIN) Allergy (Unknown, Verified 10/04/25 11:47) RED RASH zoster vaccine live (SHINGLES VACCINE) Allergy (Unknown, Verified 10/04/25 11:47) RASH,HIVES HPI Comments Details: Presenting for follow-up regarding CT scan which shows the following: IMPRESSION: There is a small sliding hiatal hernia. Hysterectomy Multilevel degenerative disc disease and facet arthropathy. Moderate left hip joint osteoarthritis. Fleischner guidelines were followed. [facility] Medical History Vaccine refused by patient Osteopenia of multiple sites Heartburn symptom Mixed stress and urge urinary incontinence Chronic right sacroiliac joint pain Osteoarthritis involving multiple joints on both sides of body Dyslipidemia Surgical History H/O breast biopsy H/O abdominoplasty Status post bilateral breast reduction History of partial hysterectomy History of tonsillectomy Hx of appendectomy Status post total hip replacement, right History of total right knee replacement (~2019) Family History Father No problems noted. Mother No problems noted. Social History Housing: House Alcohol intake: never Patient Tobacco Use Status: Never used Tobacco e-Cigarette/Vaping Use: Never Used service: No Current occupational status: retired Current occupation: right handed Cognitive needs: No Hearing needs: No Vision needs: Yes Review of Systems Const All systems reviewed & are unremarkable except as noted in HPI and below Reports as per HPI and Reports no additional complaints GI Reports no additional complaints Reports no additional complaints Physical Exam Vital Signs: Last Vital Signs BP 126/74 10/04/25 11:42 BMI result Body Mass Index 29.6 Assessment & Plan Assessment & Plan (1) Microscopic hematuria: Code(s): R31.29 - Other microscopic hematuria Category: Medical Plan: Discussed with the patient the finding on CT scan, instructions given the patient to call her PCP for further management Urology referral placed last visit, the patient is concerned about financial implications of the urology consult. Encouraged the patient to have urology consult to complete the workup for microscopic hematuria in order to prevent any delay in diagnosis and treatment without affecting any negative outcome. Instructed the patient to call our office back in case a referral appointment is not scheduled, missed or canceled so that we will assist on rescheduling another appointment, the patient verbalized understanding agreed with the plan. Coding Level of Care Code Est Pt Level 3 (04071) Diagnoses Microscopic hematuria R31.29
--- OUTSIDE RECORDS SUMMARY | 2025-10-04 13:53 | XMS_ITS | Clinical Summary ---
Author Organization [facility] Address [address] [place] [address] Care Team Providers Care Brick Siding Applicator Name Role Phone Alana Tripp MD Primary Care Provider +1 [phone] Allergies Active Allergy Reactions Criticality Noted Date [...] age to complete this topic Care Teams Brick Siding Applicator Relationship Specialty Start Date End Date Alana Tripp MD [address] [place] [address] PCP - General Internal Medicine 04/28/21
== END 2025-10-04 12:25 | disposition home or self-care (01) ==
LOC: HO.HWS 11:29
PROVIDERS: PCP Internal Medicine; Visit Provider Obstetrics & Gynecology
DX: R31.29 Other microscopic hematuria (principal)
CPT/HCPCS: 99213

== ENCOUNTER → 2025-10-04 11:28 | Outpatient (BNVA) | payer MEDICARE, SELFPAY | PROVIDERS: PCP Internal Medicine; Visit Provider Obstetrics & Gynecology | DX: R31.29 Other microscopic hematuria (principal) | CPT/HCPCS: 99212 ==